=== PATIENT | male | born 1935 ===

== ENCOUNTER 2025-01-06 10:46 | Outpatient (AMB) | payer MEDICARE, OTHER, SELFPAY ==
--- NOTE | 2025-01-06 10:49 | MHC.OFFVIS ---
Intake Visit Reasons: 6 M PD Allergies No Known Allergies Allergy (Verified 12/31/24 10:43) Medication List - Last Reconciled 01/06/25 by Anne Marie García CNP carbidopa-levodopa 25-100 mg 1 tab PO BID febuxostat 40 mg PO DAILY leflunomide 10 mg PO DAILY methotrexate sodium 2.5 mg PO QWEEK omeprazole 20 mg PO DAILY rasagiline 1 mg PO DAILY simvastatin 40 mg PO DAILY tramadol 50 mg PO BID PRN HPI Comments Details: 89-year-old man with hypertension, hyperlipidemia, psoriatic arthritis, gout, lymphoma and bladder cancer in the past, with history of resting tremor in the right hand beginning around 2017. He was seen by Dr. Ko around 2018 and diagnosed with parkinsonian tremor. He was started on rasagiline 1mg daily and carbidopa levodopa 25/100mg twice a day. He was still taking carbidopa-levodopa twice a day and rasagiline daily. He was dealing with some increased back pain. He was having some trouble getting up from a chair and turning in bed. Balance was about the same, no falls. He was using walker for longer distances. Tremor to right arm and leg was about the same, some days worse than others. No functional impairment. No difficulty eating or drinking. His voice was softer and he had trouble getting words out sometimes. He was waiting for an appointment with ENT. [facility] Medical History (Updated 01/06/25 @ 10:52 by Anne Marie García CNP) Gout HLD (hyperlipidemia) GERD (gastroesophageal reflux disease) Kidney disease Skin cancer Bladder cancer Lymphoma Psoriatic arthritis Hypertension Parkinsonian tremor Review of Systems Const Denies chills, Denies daytime sleepiness, Denies difficulty sleeping, Denies fatigue, Denies fever(s), Denies frequent falls, Denies headache(s), Denies increased appetite, Denies poor appetite, Denies snoring, Denies weakness, Denies weight gain and Denies weight loss Eyes Denies loss of vision ENT Denies vertigo, Denies dizziness, Denies headache(s) and Denies neck pain Card Denies chest pain at rest, Denies chest pain with activity, Denies syncope, Denies leg edema, Denies palpitations, Denies dyspnea and Denies dyspnea on exertion Resp Denies cough, Denies dyspnea, Denies dyspnea on exertion and Denies snoring GI Denies abdominal pain, Denies constipation, Denies heartburn, Denies diarrhea and Denies nausea Denies urinary frequency, Denies urinary incontinence and Denies urinary urgency Musc Denies abnormal gait, Denies back pain, Denies myalgias, Denies arthralgias, Denies neck pain, Denies numbness and Denies tingling Neuro Denies abnormal gait, Denies vertigo, Denies dizziness, Denies syncope, Denies frequent falls, Denies headache(s), Denies lack of coordination, Denies loss of vision, Denies memory loss, Denies numbness, Denies Other visual disturbances, Denies restless legs, Denies seizure-like activity, Denies tingling, Denies paresthesias, Reports tremor(s) and Denies weakness Psych Denies anxiety, Denies depression, Denies auditory hallucinations, Denies memory loss and Denies visual hallucinations Endo Denies fatigue and Denies palpitations Physical Exam Const Other: General Appearance:? normal, in no acute distress. Heart:? S1, S2 normal, no murmurs. Lungs:? clear anteriorly and posteriorly. Musculoskeletal:? normal. Extremities:? no edema. Psych:? alert, oriented, cognitive function intact, cooperative with exam. Neuro Other: Abnormal Neurological Findings:?6 Hz tremor of the jaw and lip. Intermittent large amplitude slow frequency 6 Hz tremor of the right upper extremity and the right leg. Very mild RUE cogwheeling. Minimal decrease in facial expression.?Walking with walker. Mental Status: alert and oriented X 3. Normal attention, orientation, memory, and affect. Cranial Nerves: Pupils are equal, round, and reactive to light. External ocular muscles are intact. Visual sykes are full, no ptosis. Face is symmetrical, no facial weakness or droop. Facial sensations are normal. Tongue protrudes in midline. Palate elevates symmetrically. Shoulder shrugging is normal Motor Examination: Normal muscle tone, bulk and strength. No atrophy or fasciculations. No drift of the extended upper extremities. DTR 2+. Plantars are flexor. Sensory Exam: Normal light touch, temperature, pinprick, vibration, and joint-position sensations. Rhomberg sign is absent. Coordination: No ataxia. No titubation. Mvkhic-dl-twuk, ammb-qnzu-kahm test, and rapid alternating movements were normal. Gait Exam: With a walker. Cerebellar Signs: Rupvzw-cm-dtym is okay. Extrapyramidal System: As above. Speech: Normal. No dysphasia or dysarthria. Assessment & Plan Assessment & Plan (1) Parkinsons disease: Code(s): G20.A1 - Parkinson's disease without dyskinesia, without mention of fluctuations Category: Medical Qualifiers: Dyskinesia presence: without dyskinesia Fluctuating manifestations: without fluctuating manifestations Qualified Code(s): G20.A1 - Parkinson's disease without dyskinesia, without mention of fluctuations Plan: Increase carbidopa-levodopa 25-100mg 1 tablet three times a day. Continue rasagiline mesylate 1mg 1 tablet daily. Stay physically active, use walker. Medications: New carbidopa-levodopa 25-100 mg (Sinemet) 1 tab PO TID 270 tabs 1RF 90 days Coding Level of Care Code Est Pt Level 4 (71934) Diagnoses Parkinson's disease without dyskinesia or fluctuating manifestations G20.A1 Dyskinesia presence: without dyskinesia Fluctuating manifestations: without fluctuating manifestations
--- OUTSIDE RECORDS SUMMARY | 2025-01-06 11:56 | XMS_ITS | Encounter Summary ---
Author Organization [facility] Address [address] [place] [phone] Phone Care Team Providers Care [place] Supervisor Name Role Phone Leonid Ramsey MD Primary Care Provider [phone] Ladonna Moya RN Unavailable [email or web address] Sammy Martin MD Unavailable [phone] Zander Bettencourt MD Unavailable minna Kashmir Huang MD Unavailable [phone] Encounter Details Date Type Department Care Team (Late st Contact Info) Description 05/09/2024 Procedure Pass [facility], [facility] [place] [place] [address], [address] [place] [id number] Social History Tobacco Use Types Packs/Day Years Used Date Smoking Tobacco: Never Smokeless Tobacco: Never Alcohol Use Standard Drinks/Week Comments Yes 0 (1 standard drink = 0.6 oz pur e alcohol) Education Answer Date Recorded Are you interested in more education? Not on mando e 10/05/2022 Are you concerned about learning? Not on file 10/05/2022 No 10/05/2022 No 10/05/2022 Digital Access Answer Date Recorded No 10/31/2022 No 10/31/2022 Reliable internet access at home? Not on file 10/31/2022 Device with a working camera? Not on file Sex and Gender Information Value Date Recorded Sex Assigned at Not on file Legal Sex Male 7:20 PM EST Gender Identity Not on file Sexual Orientation Not on file documented as of this encounter Plan of Treatment Upcoming Encounters Date Type Department Care Team (Late st Contact Info) Description 01/19/2025 9:15 AM EDT Blood Draw [facility] Imaging Department, [facility], Imaging [facility] [address] [place] [address], [address] [place] [address] Marisol Means MD, PhD [address] [place] [id number] [email or web address] 01/19/2025 10:45 AM EDT Appointment [facility] Imaging Department, [facility], PET/CT [address] [place] [id number] Marisol Means MD, PhD [address] [place] [phone] [email or web address] 01/19/2025 2:00 PM EDT [facility], Division of Hematologic Oncology, [address], [address] [place] [address] Maura Keller, [address] [phone] [email or web address] 02/16/2025 2:30 PM EDT Office Visit [facility] Rheumatology [address] [place] [address] [place] [address] Claudtete Mckeon MD [address] [place] [phone] documented as of this encounter Visit Diagnoses Not on filedocumented in this encounter Care Teams [place] Supervisor Relationship Specialty Start Date End Date Leonid Ramsey MD [address] [place] [address] [place] [address] PCP - General Endocrinology 02/10/22 Ladonna Moya, RN [address] [place] [phone] [email or web address] Primary Infusion Nurse 04/26/22 Sammy Martin MD [address] [place] [address] Nephrology 05/10/22 Zander Bettencourt MD [address] [place] [address] Rheumatology 05/10/22 Kashmir Huang MD [address] [place] [phone] [email or web address] Urology 05/10/22 documented as of this encounter Additional Source Comments The information contained in this document represents components of the legal health record. It is not the complete legal health record.[facility]
--- OUTSIDE RECORDS SUMMARY | 2025-01-06 11:56 | XMS_ITS ---
Author Name [facility] Organization Unknown Results Test Name/Text Value Interpretation Date Range Source MAGNESIUM SERPL MCNC 2.1 mg/dL Normal 04/04/2024 1.7 - 2.8 [facility] MCHC RBC AUTO MCNC 34.1 g/dL Normal 04/04/2024 32 - 36 [facility] MCH RBC QN AUTO 32.1 pg Normal 04/04/2024 25 - 33 CTT HS RBC NO. BLD AUTO 2.93 M/uL Below low normal 04/04/2024 4.7 - [facility] HGB BLD MCNC 9.4 g/dL Below low normal 04/04/2024 13.5 - 18 [facility] MCV RBC AUTO 94.2 fL Normal 04/04/2024 78 - 100 [facility] H HCT VFR BLD AUTO 27.6 % Below low normal 04/04/2024 40 - 54 [facility] RDW RBC AUTO RTO 13.2 % Normal 04/04/2024 12.1 - 17.7 [facility] WBC NO. BLD AUTO 4.6 K/uL Normal 04/04/2024 4 - 10.5 CT [facility] PMV BLD AUTO 8.6 fL Normal 04/04[facility]2024 [facility] NO. BLD AUTO 181.0 K/uL Normal 04/04/2024 150 - 450 [facility] CALCIUM SERPL MCNC 8.8 mg/dL Normal 04/04/2024 8.4 - 10.2 [facility] CREAT SERPL MCNC 2.9 mg/dL Above high normal 04/04/2024 0.7 - 1.3 [facility] SODIUM SERPL SCNC 136.0 mmol/L Normal 04/04/2024 135 - 14 5 [facility] CHLORIDE SERPL SCNC 115.0 mmol/L Above high normal 04/04/2024 98 - 107 [facility] Glomerular filtration rate/1.73 sq M. predicted 20.0 Below low normal 04/04/2024 60 - [facility] HCO3 SER SCNC 13.0 mmol/L Below low normal 04/04/2024 24 - 3 2 [facility] ANION GAP SERPL SCNC 8.0 mmol/L Normal 04/04/2024 5 - 14 [facility] POTASSIUM SERPL SCNC 4.2 mmol/L Normal 04/04/2024 3.5 - 5.1 [facility] GLUCOSE P FAST SERPL MCNC 102.0 mg/dL Above high normal 04/04/2024 70 - 99 [facility] BUN SERPL MCNC 74.0 mg/dL Above high normal 04/04/2024 9 - 2 0 [facility] Glomerular filtration rate/1.73 sq M. predicted 16.0 Below low normal 04/03/2024 60 - [facility] SODIUM SERPL SCNC 129.0 mmol/L Below low normal 04/03/2024 1 35 - 145 [facility] CREAT SERPL MCNC 3.5 mg/dL Above high normal 04/03/2024 0.7 - 1.3 [facility] POTASSIUM SERPL SCNC 4.1 mmol/L Normal 04/03/2024 3.5 - 5.1 [facility] BUN SERPL MCNC 88.0 mg/dL Above high normal 04/03/2024 9 - 2 0 [facility] CALCIUM SERPL MCNC 9.0 mg/dL Normal 04/03/2024 8.4 - 10.2 [facility] ANION GAP SERPL SCNC 8.0 mmol/L Normal 04/03/2024 5 - 14 [facility] HCO3 SER SCNC 12.0 mmol/L Below low normal 04/03/2024 24 - 3 2 [facility] GLUCOSE SERPL MCNC 148.0 mg/dL Normal 04/03/2024 70 - 199 [facility] CHLORIDE SERPL SCNC 109.0 mmol/L Above high normal 04/03/2024 98 - 107 [facility] HGB BLD MCNC 9.7 g/dL Below low normal 04/03/2024 13.5 - 18 [facility] RDW RBC AUTO RTO 13.3 % Normal 04/03/2024 12.1 - 17.7 [facility] MCH RBC QN AUTO 32.9 pg Normal 04/03/2024 25 - 33 [facility] PMV BLD AUTO 8.8 fL Normal 04/03/2024 7.4 - 11.4 [facility] MCV RBC AUTO 95.9 fL Normal 04/03/2024 78 - 100 [facility] H RBC NO. BLD AUTO 2.95 M/uL Below low normal 04/03/2024 4.7 - 6 [facility] PLATELET NO. BLD AUTO 165.0 K/uL Normal 04/03/2024 150 - 450 [facility] HCT VFR BLD AUTO 28.3 % Below low normal 04/03/2024 40 - 54 [facility] MCHC RBC AUTO MCNC 34.3 g/dL Normal 04/03/2024 32 - 36 [facility] WBC NO. BLD AUTO 5.5 K/uL Normal 04/03/2024 4 - [facility] MAGNESIUM SERPL MCNC 1.7 mg/dL Normal 04/03/2024 1.7 - 2.8 [facility] pH Ur Strip.auto 7.0 Normal 04/03/2024 4.5 - 8 CT [facility] Hgb Ur Ql Strip.auto TRACE Abnormal 04/03/2024 - [facility] Color Ur Auto YELLOW Normal 04/03/2024 [facility] Nitrite Ur Ql Strip.auto NEGATIVE Normal 04/03/2024 - [facility] Clarity Ur Refract.auto HAZY Normal 04/03/2024 [facility] Ketones Ur Ql Strip.auto NEGATIVE Normal 04/03/2024 - [facility] Glucose Ur Ql Strip.auto NEGATIVE Normal 04/03/2024 - [facility] Prot Ur Ql Strip.auto NEGATIVE Normal 04/03/2024 - [facility] Sp Gr Ur Strip.auto 1.01 Normal 04/03/2024 1.005 - 1.03 [facility] SPECIMEN SOURCE XXX STOMA Normal 04/03/2024 [facility] RBC number/area UrnS Auto 2.0 /HPF Normal 04/03/2024 0 - 3 [facility] WBC number/area UrnS Auto 10.0 /HPF Above high normal 04/03/2024 0 - 5 [facility] POTASSIUM SERPL SCNC 5.0 mmol/L Normal 04/02/2024 3.5 - 5.1 [facility] CHLORIDE SERPL SCNC 113.0 mmol/L Above high normal 04/02/2024 98 - 107 [facility] CREAT SERPL MCNC 3.9 mg/dL Above high normal 04/02/2024 0.7 - 1.3 [facility] CALCIUM SERPL MCNC 8.7 mg/dL Normal 04/02/2024 8.4 - 10.2 [facility] Glomerular filtration rate/1.73 sq M. predicted 14.0 Below low normal 04/02/2024 60 - [facility] SODIUM SERPL SCNC 130.0 mmol/L Below low normal 04/02/2024 1 35 - 145 [facility] HCO3 SER SCNC 9.0 mmol/L Below low normal 04/02/2024 24 - 32 [facility] ANION GAP SERPL SCNC 8.0 mmol/L Normal 04/02/2024 5 - 14 [facility] BUN SERPL MCNC 100.0 mg/dL Above high normal 04/02/2024 9 - 20 [facility] GLUCOSE SERPL MCNC 186.0 mg/dL Normal 04/02/2024 70 - 199 [facility] WBC number/area UrnS Auto >20 Above high normal 04/02/2024 0 - 5 [facility] RBC number/area UrnS Auto 2.0 /HPF Normal 04/02/2024 0 - 3 [facility] Glucose Ur Ql Strip.auto NEGATIVE Normal 04/02/2024 - [facility] Hgb Ur Ql Strip.auto NEGATIVE Normal 04/02/2024 - [facility] Clarity Ur Refract.auto CLOUDY Normal 04/02/2024 [facility] pH Ur Strip.auto 7.5 Normal 04/02/2024 4.5 - 8 CT [facility] Color Ur Auto YELLOW Normal 04/02/2024 [facility] Nitrite Ur Ql Strip.auto NEGATIVE Normal 04/02/2024 - [facility] Sp Gr Ur Strip.auto 1.015 Normal 04/02/2024 1.005 - 1.03 [facility] Prot Ur Ql Strip.auto 30.0 mg/dL Abnormal 04/02/2024 - [facility] Ketones Ur Ql Strip.auto NEGATIVE Normal 04/02/2024 - [facility] SPECIMEN SOURCE XXX UCC Normal 04/02/2024 [facility] MCHC RBC AUTO MCNC 33.9 g/dL Normal 04/02/2024 32 - 36 [facility] IMMATURE GRANULOCYTE, ABSOLUTE 0.03 k/uL Normal 04/02/2024 - 0.1 [facility] MCH RBC QN AUTO 33.2 pg Above high normal 04/02/2024 25 - 33 [facility] IMMATURE GRANULOCYTE, PERCENT 0.5 % Normal 04/02/2024 0 - 1 [facility] RDW RBC AUTO RTO 13.6 % Normal 04/02/2024 12.1 - 17.7 [facility] EOSINOPHIL NFR BLD AUTO 3.5 % Normal 04/02/2024 0 - 6 [facility] BASOPHILS IN BLOOD BY AUTOMATED COUNT 0.0 K/uL Normal 04/02/2024 0 - 0.2 [facility] EOSINOPHIL NO. BLD AUTO 0.2 K/uL Normal 04/02/2024 0 - 0.5 [facility] RBC NO. BLD AUTO 2.98 M/uL Below low normal 04/02/2024 4.7 - 6 [facility] HCT VFR BLD AUTO 29.2 % Below low normal 04/02/2024 40 - 54 [facility] BASOPHILS NFR BLD AUTO 0.6 % Normal 04/02/2024 0 - 2 [facility] WBC NO. BLD AUTO 6.6 K/uL Normal 04/02/2024 4 - 10.5 CT [facility] MONOCYTES NFR BLD AUTO 8.7 % Normal 04/02/2024 2 - 12 [facility] NUCLEATED RBC 0.0 % Normal 04/02/2024 0 - 1 [facility] PLATELET NO. BLD AUTO 186.0 K/uL Normal 04/02/2024 150 - 450 [facility] LYMPHOCYTES NO. BLD AUTO 0.7 K/uL Below low normal 04/02/2024 1 - 3.2 [facility] MCV RBC AUTO 98.0 fL Normal 04/02/2024 78 - 100 [facility] H NEUTROPHILS NO. BLD AUTO 5.1 K/uL Normal 04/02/2024 1.8 - 7.8 [facility] LYMPHOCYTES NFR BLD AUTO 9.9 % Below low normal 04/02/2024 20 - 48 [facility] MONOCYTES NO. BLD AUTO 0.6 K/uL Normal 04/02/2024 0 - 0.8 [facility] PMV BLD AUTO 8.3 fL Normal 04/02/2024 7.4 - 11.4 [facility] HGB BLD MCNC 9.9 g/dL Below low normal 04/02/2024 13.5 - 18 [facility] NEUTROPHILS NFR BLD AUTO 76.8 % Above high normal 04/02/2024 44 - 74 [facility] HCO3 SER SCNC 11.0 mmol/L Below low normal 04/02/2024 24 - 3 2 [facility] POTASSIUM SERPL SCNC 5.8 mmol/L Above high normal 04/02/2024 3.5 - 5.1 [facility] CALCIUM SERPL MCNC 9.4 mg/dL Normal 04/02/2024 8.4 - 10.2 [facility] GLUCOSE SERPL MCNC 159.0 mg/dL Normal 04/02/2024 70 - 199 [facility] CHLORIDE SERPL SCNC 115.0 mmol/L Above high normal 04/02/2024 98 - 107 [facility] ANION GAP SERPL SCNC 7.0 mmol/L Normal 04/02/2024 5 - 14 [facility] SODIUM SERPL SCNC 133.0 mmol/L Below low normal 04/02/2024 1 35 - 145 [facility] Glomerular filtration rate/1.73 sq M. predicted 13.0 Below low normal 04/02/2024 60 - [facility] CREAT SERPL MCNC 4.3 mg/dL Above high normal 04/02/2024 0.7 - 1.3 [facility] BUN SERPL MCNC 101.0 mg/dL Above high normal 04/02/2024 9 - 20 [facility] GLUCOSE BLDC GLUCOMTR MCNC 148.0 mg/dL Normal 04/02/2024 70 - 199 [facility] UUN UR MCNC 498.0 mg/dL Normal 04/02/2024 [facility] CK SERPL CCNC 57.0 U/L Normal 04/02/2024 30 - 135 [facility] SODIUM UR SCNC 51.0 mmol/L Normal 04/02/2024 CT [facility] CREAT UR MCNC 92.0 mg/dL Normal 04/02/2024 [facility] CREAT [facility] MC[facility] 4.5 mg/dL Above high normal 04/02/2024 0.7 - 1.3 [facility] HCO3 SER SCNC 12.0 mmol/L Below low normal 04/02/2024 24 - 3 2 [facility] GLUCOSE SERPL MCNC 94.0 mg/dL Normal 04/02/2024 70 - 199 [facility] Glomerular filtration rate/1.73 sq M. predicted 12.0 Below low normal 04/02/2024 60 - [facility] CALCIUM SERPL MCNC 9.7 mg/dL Normal 04/02/2024 8.4 - 10.2 [facility] POTASSIUM SERPL SCNC 6.1 mmol/L Above high normal 04/02/2024 3.5 - 5.1 [facility] CHLORIDE SERPL SCNC 116.0 mmol/L Above high normal 04/02/2024 98 - 107 [facility] BUN SERPL MCNC 106.0 mg/dL Above high normal 04/02/2024 9 - 20 [facility] SODIUM SERPL SCNC 136.0 mmol/L Normal 04/02/2024 135 - 14 5 [facility] ANION GAP SERPL SCNC 8.0 mmol/L Normal 04/02/2024 5 - 14 [facility] ANION GAP SERPL SCNC 7.0 mmol/L Normal 04/01/2024 5 - 14 [facility] GLUCOSE SERPL MCNC 74.0 mg/dL Normal 04/01/2024 70 - 199 [facility] CREAT SERPL MCNC 4.6 mg/dL Above high normal 04/01/2024 0.7 - 1.3 [facility] Glomerular filtration rate/1.73 sq M. predicted 12.0 Below low normal 04/01/2024 60 - [facility] HCO3 SER SCNC 12.0 mmol/L Below low normal 04/01/2024 24 - 3 2 [facility] CHLORIDE SERPL SCNC 118.0 mmol/L Above high normal 04/01/2024 98 - 107 [facility] CALCIUM SERPL MCNC 9.6 mg/dL Normal 04/01/2024 8.4 - 10.2 [facility] POTASSIUM SERPL SCNC 6.3 mmol/L Above high normal 04/01/2024 3.5 - 5.1 [facility] BUN SERPL MCNC 110.0 mg/dL Above high normal 04/01/2024 9 - 20 [facility] SODIUM SERPL SCNC 137.0 mmol/L Normal 04/01/2024 135 - 14 5 [facility] RSV RNA Nph Ql JIE+non-probe NEGATIVE Normal 04/01/2024 [facility] Service [facility] XXX-Imp Cepheid GeneXpert (RT-PCR) H Normal 04/01/2024 [facility] FLUAV RNA Nph Ql JIE+non-probe NEGATIVE Normal 04/01/2024 [facility] FLUBV RNA Nph Ql JIE+non-probe NEGATIVE Normal 04/01/2024 [facility] SPECIMEN SOURCE XXX NASOPHARYNGEAL Normal 04/01/2024 [facility] PHOSPHATE SERPL MCNC 5.5 mg/dL Above high normal 04/01/2024 2.5 - 4.5 [facility] LDH SERPL L TO P CCNC 105.0 U/L Below low normal 04/01/2024 125 - 220 [facility] ALP [facility]PL-CCNC 51.0 U/L Normal 04/01/2024 34 - 104 [facility] AST SERPL CCNC 13.0 U/L Normal 04/01/2024 5 - 40 [facility] ALT SERPL CCNC 11.0 U/L Normal 04/01/2024 7 - 52 [facility] CHLORIDE SERPL SCNC 115.0 mmol/L Above high normal 04/01/2024 98 - 107 [facility] Glomerular filtration rate/1.73 sq M. predicted 11.0 Below low normal 04/01/2024 60 - [facility] SODIUM SERPL SCNC 135.0 mmol/L Normal 04/01/2024 135 - 14 5 [facility] BUN SERPL MCNC 108.0 mg/dL Above high normal 04/01/2024 9 - 20 [facility] POTASSIUM SERPL SCNC 6.4 mmol/L Above high normal 04/01/2024 3.5 - 5.1 [facility] HCO3 SER SCNC 13.0 mmol/L Below low normal 04/01/2024 24 - 3 2 [facility] ANION GAP SERPL SCNC 8.0 mmol/L Normal 04/01/2024 5 - 14 [facility] GLUCOSE SERPL MCNC 152.0 mg/dL Normal 04/01/2024 70 - 199 [facility] CALCIUM SERPL MCNC 9.6 mg/dL Normal 04/01/2024 8.4 - 10.2 [facility] CREAT SERPL MCNC 4.7 mg/dL Above high normal 04/01/2024 0.7 - 1.3 [facility] LACTATE SERPL SCNC 0.8 mmol/L Normal 04/01/2024 0.5 - 2 [facility] LIPASE SERPL CCNC 64.0 U/L Normal 04/01/2024 11 - 82 [facility] BILIRUB SERPL MCNC 0.3 mg/dL Normal 04/01/2024 0.3 - 1 [facility] BILIRUB DIRECT SERPL MCNC 0.1 mg/dL Normal 04/01/2024 0 - 0.2 [facility] URATE SERPL MCNC 7.1 mg/dL Normal 04/01/2024 3.5 - 8.5 CT [facility] LYMPHOCYTES NO. BLD AUTO 0.3 K/uL Below low normal 04/01/2024 1 - 3.2 [facility] MCH RBC QN AUTO 32.7 pg Normal 04/01/2024 25 - 33 [facility] BASOPHILS NFR BLD AUTO 0.4 % Normal 04/01/2024 0 - 2 [facility] MONOCYTES NO. BLD AUTO 0.5 K/uL Normal 04/01/2024 0 - 0.8 [facility] HGB BLD MCNC 10.8 g/dL Below low normal 04/01/2024 13.5 - 18 [facility] HCT VFR BLD AUTO 32.7 % Below low normal 04/01/2024 40 - 54 [facility] WBC NO. BLD AUTO 9.3 K/uL Normal 04/01/2024 4 - 10.[facility] BASOPHILS IN BLOOD BY AUTOMATED COUNT 0.0 K/uL Normal 04/01/2024 0 - 0.2 [facility] MCHC RBC AUTO MCNC 33.0 g/dL Normal 04/01/2024 32 - 36 [facility] IMMATURE GRANULOCYTE, PERCENT 0.4 % Normal 04/01/2024 0 - 1 [facility] PLATELET NO. BLD AUTO 215.0 K/uL Normal 04/01/2024 150 - 450 [facility] MCV RBC AUTO 99.1 fL Normal 04/01/2024 78 - 100 [facility] EOSINOPHIL NFR BLD AUTO 0.3 % Normal 04/01/2024 0 - 6 [facility] LYMPHOCYTES NFR BLD AUTO 3.7 % Below low normal 04/01/2024 20 - 48 [facility] PMV BLD AUTO 8.4 fL Normal 04/01/2024 7.4 - 11.4 [facility] MONOC[facility]TES NFR BLD AUTO 4.8 % Normal 04/01/2024 2 - 12 [facility] NUCLEATED RBC 0.0 % Normal 04/01/2024 0 - 1 [facility] RBC NO. BLD AUTO 3.3 M/uL Below low normal 04/01/2024 4.7 - 6 [facility] RDW RBC AUTO RTO 13.8 % Normal 04/01/2024 12.1 - 17.7 [facility] NEUTROPHILS NFR BLD AUTO 90.4 % Above high normal 04/01/2024 44 - 74 [facility] IMMATURE GRANULOCYTE, ABSOLUTE 0.04 k/uL Normal 04/01/2024 - 0.1 [facility] NEUTROPHILS NO. BLD AUTO 8.4 K/uL Above high normal 04/01/2024 1.8 - 7.8 [facility] EOSINOPHIL NO. BLD AUTO 0.0 K/uL Normal 04/01/2024 0 - 0.5 [facility] AMYLASE SERPL CCNC 70.0 U/L Normal 04/01/2024 29 - 103 [facility] History of Medication Use Medication Directions Dispensed Refills Start Date End Date Stat sodium chloride 0.9% (NS) infusion 75 mL/hr, Intravenous, Continuous, Starting on Sun04/03/24 at 1200, For 8 hours 04/03/2024 04/04/2024 completed senna (SENOKOT) 8.6 MG tablet 1 tablet 1 tablet, Oral, Every Night at Bedtime, First dose on Sun04/02/24 at 2200 04/03/2024 active heparin (porcine) injection 5,000 Units 5,000 Units, Subcutaneous, Every 8 hours scheduled, First dose on Sun04/02/24 at 0600If CrCL less than 30 use subcut Heparin 04/02/2024 04/04/2024 aborted pantoprazole (PROTONIX) 40 MG EC tablet 40 mg 40 mg, Oral, Every Morning on an empty stomach (Daily), First dose on Sun04/02/24 at 0600Please select an indication: GERDIs this a home medication or a new start? Home Medication 04/02/2024 active albuterol (PROVENTIL) nebulizer solution 2.5 mg 2.5 mg, Nebulization, Once, On Sun04/01/24 at 1645, For 1 dose 04/01/2024 04/01/2024 completed sodium zirconium cyclosilicate (Lokelma) 10 g PACK packet Take 1 packet (10 g total) by mouth 06/19/2023 06/19/2024 active folic acid (FOLVITE) tablet 1 mg Take 1 tablet (1 mg total) by mouth. active Problems Problem Status Onset Date Problem Type Date of Resoluti on Source Hyperkalemia active 2024-04-01 ProblemAct [facility] (acute kidney injury) active 2024-04-01 ProblemAct [facility] Encounters Encounter Type Encounter Reason Primary Diagnosis Location Date Inpatient Acute kidney failure , unspecified Acute kidney failure, unspecified [facility] 04/01/2024 Care Team Organization Name Specialty Phone Email Start Date End [facility] te [facility] 04/03/2024 12/23/2024 [facility] 04/01/2024 [facility]UIDO PATEL Primary Care 04/01/2024
--- OUTSIDE RECORDS SUMMARY | 2025-01-06 11:56 | XMS_ITS | Clinical Summary ---
Author Organization [facility], Address [address] [place] [address] [place] [address] Phone Care Team Providers Care Political Consultant Name Role Phone Leonid Ramsey MD Primary Care Provider Allergies No known active allergies Medications Febuxostat (Uloric) 40 MG tablet Comments: Filled Date: Nov 25 2016 12:00AM Patient Notes: TAKE 1 TABLET BY MOUTH EVERY DAY Duration: 30 6 Active simvastatin (ZOCOR) 40 MG tablet Comments: Filled Date: Nov 17 2016 12:00AM Patient Notes: TAKE 1 TABLET BY MOUTH ONCE A DAY Duration: 7 Active traMADol (ULTRAM) 50 MG tablet Comments: Filled Date: Dec 21 2016 12:00AM Patient Notes: TAKE 1 TABLET BY MOUTH TWICE A DAY NEEDED Duration: 30 7 Active sodium polystyrene (KAYEXALATE) 15 GM/60ML suspension Take 60 mL by mouth 1 (one) time 7 Active omeprazole (PriLOSEC) [address] capsule Comments: Filled Date: Nov 17 2016 12:00AM Patient Notes: TAKE 1 CAPSULE BY MOUTH ONCE A DAY Duration: 7 Active methotrexate 2.5 MG tablet Comments: Filled Date: Jan 06 2017 12:00AM Patient Notes: TAKE 1 TABLET BY MOUTH ONCE WEEKLY Duration: 7 Active rasagiline (AZILECT) 1 MG tablet 1 Active acyclovir (ZOVIRAX) 400 MG tablet TAKE 1 TABLET (400 MG TOTAL) BY MOUTH 2 TIMES A DAY 2 Active carbidopa-levodo pa (SINEMET) 25-100 MG per tablet Take 1 tablet by mouth 2 Active dexamethasone (DECADRON) 4 MG tablet PLEASE SEE ATTACHED FOR DETAILED DIRECTIONS 2 Active diclofenac (VOLTAREN) 0.1 % ophthalmic solution PLACE 1 DROP INTO BOTH EYES 4 TIMES A DAY NEEDED FOR EYE PAIN 2 Active LORazepam (ATIVAN) 0.5 MG tablet Take 0.5 mg by mouth 2 Active mupirocin (BACTROBAN) 2 % ointment APPLY TWICE DAILY TO BIOPSY SITE UNTIL HEALED. 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 Chronic kidney disease stage 4 11/12/2019 Absent kidney 11/12/2019 Malignant neoplasm of urinary bladder 04/17/2012 Overview (05/08/2022): Malignant tumor of urinary bladder Encounters Date Type Department Care Team Description 10/27/2024 Orders Only [facility] [address] [place] [address] [place] [address] Em Quesada Chronic kidney disease stage 4 (HCC) (Primary Dx) from Last 3 Months Immunizations Immunization Administration Dates Next Due Influenza Vaccine, Quadrivalent, Adjuvanted 03/11 Influenza, Trivalent, Adjuvanted 03/25/2019 Pneumococcal Polysaccharide 03/25/2019, 5 Family History Medical History Relation Comments Diabetes Father Kidney disease Father Heart disease Mother heart attack Hypertension Mother Cancer Sibling brother- lung Relation Status Comments Father Mother Sibling Social History Tobacco Use Types Packs/Day Years Used Date Smoking Tobacco: Never Comments:Smoking History Inf o:Every day Alcohol Use Standard Drinks/Week Comments No 0 (1 standard drink = 0.6 oz pure alcohol) Alcoholic Drinks/day: Occasional social drink Sex and Gender Information Value Date Recorded Sex Assigned at Not on file Legal Sex Male 4:33 PM EST Gender Identity Not on file Sexual Orientation Not on file Last Filed Vital Signs Vital Sign Reading Time Taken Comments Blood Pressure 124/64 09/24/2024 3:11 PM EDT Pulse - - Temperature - - Respiratory Rate - - Oxygen Saturation - - Inhaled Oxygen Concentration - - Weight 85.7 kg (189 lb) 10/01/2020 5:51 PM EDT Height 177.8 cm (5' 10 ) 05/14/2019 12:00 PM EST Body Mass Index 27.12 05/14/2019 12:00 PM EST Plan of Treatment Upcoming Encounters Date Type Department Care Team (Late st Contact Info) Description 03/04/2025 3:15 PM EDT Office Visit [facility] [address] [place] [phone] Sammy Martin MD [address] [place] [address] [place] [id number] Health Maintenance Due Date Last Done Comments Pneumococcal Vaccine: 50+ Years (3 of 3 - PCV) 03/25/2020 03/25/2019, 01/20/2015 Diabetes: Hemoglobin A1C 04/24/2022 Diabetes: Ophthalmology Exam 04/24/2022 Diabetes: Pedal Pulse Checked 04/24/2022 Diabetes: Sensory Foot Exam 04/24/2022 Diabetes: Visual Foot Exam 04/24/2022 Influenza Vaccine (#1) 2025 0, 03/25/2019, 04/01/2018, Additional history exists Pneumococcal Vaccine: Peds (0 to 5 Years) and At-Risk Patients (6 to 49 Years) Discontinued 03/25/2019, 01/20/2015 Hepatitis B Vaccine Aged Out No longe r eligible based on patient's age to complete this topic Insurance Medicare Unicare Care Teams Political Consultant Relationship Specialty Start Date End Date Leonid Ramsey MD [address] [place] [address] [address] [place] [address] PCP - General 04/15/19
--- OUTSIDE RECORDS SUMMARY | 2025-01-06 11:56 | XMS_ITS | Encounter Summary ---
Author Organization [employer] Address [address] [place] [address] Care Team Providers Care Automatic Machines Supervisor Name Role Phone Leonid Ramsey MD Primary Care Provider [phone] Encounter Details Date Type Department Care Team (Late st Contact Info) Description 09/08/2024 Lab Requisition [facility] - Main Lab [address] [facility] [place] [address] Kashmir Huang MD [address] [place] [phone] Malignant neoplasm of trigone of bladder (CMS/HCC V24, CMS/HCC V28) Social History Tobacco Use Types Packs/Day Years Used Date Smoking Tobacco: Former Cigarettes Q uit: 03/23/1984 Smokeless Tobacco: Never Alcohol Use Standard Drinks/Week Comments Not Currently 0 (1 standard drink = 0.6 oz pur e alcohol) Sex and Gender Information Value Date Recorded Sex Assigned at Not on file Legal Sex Male 9:12 PM EST Gender Identity Not on file Sexual Orientation Not on file documented as of this encounter Plan of Treatment Not on file documented as of this encounter Procedures Procedure Name Priority Date/Time Associated Diagnosis Comments AP OUTSIDE CONSULT Routine 09/03/2024 12 :00 AM EDT Malignant neoplasm of trigone of bladder (CMS/HCC) documented in this encounter Results * Anatomic pathology outside consult (09/03/2024 12:00 AM EDT) Final Diagnosis A. Ileal Conduit, ([id number]): Negative for high grade urothelial carcinoma. Results of UroVysion fluorescence in situ hybridization (FISH) testing: Although FISH was performed, insufficient non-obscured hybridization signals are present for evaluation and interpretation. 09/12/2024 4:14 PM EDT [facility] Clinical Information Malignant neoplasm of trigone of bladder C67.0 Urine Cytology/FISH (now) 09/12/2024 4:14 PM EDT [facility] Gross Description A. Ileal Conduit, ([id number]): Received one ThinPrep slide for cytology and one ThinPrep slide for UroVysion FISH 09/12/2024 4:14 PM EDT [facility] Disclaimer Unless otherwise specified, all tissue is 10% NB formalin fixed and paraffin embedded. Technical pathology services provided by [facility] at [address], [place] [address] (CLIA #[id number]/Giulia Ricci MD, Garden Labourer) 09/12/2024 4:14 PM EDT [facility] Tissue Ileal biopsy specimen / Unknown 09/03/2024 09/08/2024 10:23 AM EDT us Kashmir Huang MD LAB PATHOLOGY ORDERABLES Final Result [facility] [address] [place] [address], documented in this encounter Visit Diagnoses Diagnosis Malignant neoplasm of trigone of bladder (CMS/HCC V24, CMS/HCC V28) Malignant neoplasm of trigone of urinary bladder documented in this encounter Care Teams Automatic Machines Supervisor Relationship Specialty Start Date End Date Leonid Ramsey MD [address] [place] [address] [address] [place] [address] PCP - General 04/01/24 documented as of this encounter
--- OUTSIDE RECORDS SUMMARY | 2025-01-06 11:56 | XMS_ITS | Clinical Summary ---
Author Organization [facility] Address [address] [place] [address] Care Team Providers Care Windows Application Packager Name Role Phone Leonid Ramsey MD Primary Care Provider [phone] Allergies No known active allergies Medications Medication Sig Dispensed Refills Start Date End Date Status febuxostat (ULORIC) 40 MG tablet Take 1 tablet (40 mg total) by mouth daily. 0 12/29/2023 Active omeprazole (PriLOSEC) 20 MG capsule Take 1 capsule (20 mg total) by mouth daily. 0 02/27/2024 Active simvastatin (ZOCOR) tablet 40 mg Take 1 tablet (40 mg total) by mouth daily. 0 02/11/2024 Active sodium bicarbonate 650 MG tablet Take 1 tablet (650 mg total) by mouth 3 (three) times a day. 0 01/16/2022 Active folic acid (FOLVITE) tablet 1 mg Take 1 tablet (1 mg total) by mouth. 0 Active carbidopa-levodopa (SINEMET) 25-100 MG per tablet Take 1 tablet by mouth 2 (two) times a day. 0 03/04/2024 Active Active Problems Problem Noted Date Diagnosed Date Hyperkalemia 04/01/2024 DANIEL (acute kidney injury) 04/01/2024 Family History Medical History Relation Name Comments Heart disease Mother Relation Name Status Comments Mother Social History Tobacco Use Types Packs/Day Years Used Date Smoking Tobacco: Former Cigars Q uit: 03/23/1984 Smokeless Tobacco: Never Tobacco Cessation:Counseling Given: Not Answered Alcohol Use Standard Drinks/Week Comments Not Currently 0 (1 standard drink = 0.6 oz pur e alcohol) Sex and Gender Information Value Date Recorded Sex Assigned at Male 04/01/2024 3:21 PM EDT Gender Identity Male 04/02/2024 11:05 AM EDT Sexual Orientation Straight 04/02/2024 11 :05 AM EDT Job Start Date Occupation Industry Not on file Not on file Not on file Last Filed Vital Signs Vital Sign Reading Time Taken Comments Blood Pressure 136/78 04/04/2024 7:57 AM EDT Pulse 90 04/04/2024 7:57 AM EDT Temperature 36.9 C (98.4 F) 04/04/2024 7:57 AM EDT Respiratory Rate 15 04/04/2024 7:57 AM EDT Oxygen Saturation 99% 04/04/2024 7:57 AM EDT Inhaled Oxygen Concentration - - Weight 77.1 kg (170 lb) 04/01/2024 2:52 PM EDT Height 175.3 cm (5' 9 ) 04/01/2024 2:52 PM EDT Body Mass Index 25.1 04/01/2024 2:52 PM EDT Plan of Treatment Health Maintenance Due Date Last Done Comments COVID-19 Vaccine (#1) 1937 Depression Screening 1949 Preventative Health Evaluation 1955 Shingrix-Zoster Vaccine (1 of 2) 1987 Fall Risk Assessment 2002 RSV Adult > 60+ Yrs or (1 - 1-dose 75+ series) 01/25/2012 Pneumococcal Vaccine (2 of 2 - PCV) 03/25/2020 03/25/2019, 01/20/2015 Influenza Vaccine (#1) 2025 2, 03/29/2021, 03/24/2020, Additional history exists DTap / Tdap / Td (2 - Td or Tdap) 01/19/2032 01/18/2022 Hepatitis B Vaccines Aged Out No long er eligible based on patient's age to complete this topic RSV Ped < 20 months Aged Out No longe r eligible based on patient's age to complete this topic Advance Directives For more information, please contact: [phone] Documents on File Type Date Recorded Patient Onsite Health Coach Expl anation Advance Directive and Living Will 04/15/2024 10:46 AM Health Care Proxy Latest Code Status on File Code Status Date Activated Date Inactivated Comments Full Code 04/01/2024 11:39 PM 04/04/2024 9:53 PM Th is code status was ascertained in the following way: discussion with patient . Care Teams Windows Application Packager Relationship Specialty Start Date End Date Leonid Ramsey MD [address] [place] [address] [address] [place] [address] PCP - General Hand Buffer 04/01/24
--- OUTSIDE RECORDS SUMMARY | 2025-01-06 11:56 | XMS_ITS | Continuity of Care Document ---
Author Organization [facility] [address] [place] [address] Phone [phone] Problems Active Problems Provider Date Type 2 diabetes mellitus Leonid Ramsey M.D. Onset: 02/17/2022 Chronic kidney disease stage 4 Leonid Ramsey M.D. Onset: 02/17/2022 Hypertensive disorder Leonid Ramsey M.D. On set: 02/17/2022 Fracture of neck of femur Cheko Sanders Onset: 02/17/2022 Malignant lymphoma Leonid Ramsey M.D. Onset : 10/09/2022 Carcinoma of bladder Leonid Ramsey M.D. Ons et: 10/09/2022 History of total cystectomy Susana Sanders Onset: 10/09/2022 Social History Type Date Description Comments Sex Male Sex Unknown Lives With Spouse Tobacco Use Start: Unknown Never Smoked Cigarettes Smoking Status Reviewed: 06/16/24 Never Smoked Cigaret dinorah ETOH Use Occasionally consumes beer Allergies and adverse reactions Description No Known Drug Allergies Medications Active Medications SIG Qnty Indications Order ing Provider Date Ativan0.5mg Tablets 1 tab orally 1 hour before procedure 1tabs Leonid Ramsey M.D. 05/31/2023 Guaifenesin-Codeine 100-10mg/5ML Solution 5 milliliters by mouth four times a day as needed 237ml Leonid Ramsey M.D. 05/23/2023 Carbidopa-Levodopa2 5-100mg Tablets Take 1 Tablet By Mouth Twice A Day 180tabs Leonid Ramsey M.D. 04/25/2023 [id number] Tablets tab by mouth every day Leonid Ramsey M.D. 02/17/2022 Lisinopril-Hydrochl [id number] Tablets 1/2 by mouth every day 90tabs Leonid Ramsey M.D. 02/17/2022 Tramadol [id number] Tablets Take 1 Tablet By Mouth Twice A Day as Needed Unknown [id number] Tablets Take 1 Tablet By Mouth Every Day 90tabs Leonid Ramsey M.D. Methotrexate2.5mg Tablets Take 1 Tablet By Mouth Once A Week For 90 Days Unknown [id number] Capsules DR Take 1 Capsule By Mouth Every Day 90caps Leonid Ramsey M.D. Diclofenac Sodium0.1% Solution Place 1 Drop Into Both Eyes 4 Times A Day as Needed For Eye Pain Unknown Ytgvrrger36ge Tablets 1 tab by mouth every day 90tabs Unknown Sodium [id number] Tablets Take 1 Tablet By Mouth Three Times A Day Unknown Rasagiline Ahwxjcjg6vg Tablets 1 tab by mouth every day 90tabs Kenna Lee MD Vital Signs Date Vital Result Comment 10/01/2024 2:32pm BP Systolic 128 mmHg BP Diastolic 70 mmHg Heart Rate 72 /min Height 71 inches 5'11 Weight 173.38 lb BMI (Body Mass Index) 24.2 kg/m2 Results Test Acquired Date Facility Test Result H/L Range N ote Glucose Fingerstick 10/01/2024 Inhouse Glucose Fingerstick 112 Hemoglobin A1c 10/01/2024 Inhouse Hemoglobin A1c 5.8% Glucose Fingerstick 06/16/2024 Inhouse Glucose Fingerstick 138 Hemoglobin A1c 06/16/2024 Inhouse Hemoglobin A1c 5.7% Glucose Fingerstick 04/28/2024 Inhouse Glucose Fingerstick 103 Glucose Fingerstick 04/16/2024 Inhouse Glucose Fingerstick 139 Hemoglobin A1c 04/16/2024 Inhouse Hemoglobin A1c 5.9% Glucose Fingerstick 11/23/2023 Inhouse Glucose Fingerstick 159 Hemoglobin A1c 11/23/2023 Inhouse Hemoglobin A1c 6.0% Glucose Fingerstick 05/23/2023 Inhouse Glucose Fingerstick 182 Hemoglobin A1c 05/23/2023 Inhouse Hemoglobin A1c 5.9% Glucose Fingerstick 11/21/2022 Inhouse Glucose Fingerstick 178 Hemoglobin A1c 11/21/2022 Inhouse Hemoglobin A1c 6.3% Glucose Fingerstick 05/23/2022 Inhouse Glucose Fingerstick 142 Glucose Fingerstick 02/17/2022 Inhouse Glucose Fingerstick 186 Medical Devices Description No Information Available Encounters Type Date Location Provider Dx Diagnosis Office Visit 06/17/2024 9:49a Main Office Leonid Ramsey M.D. N18.4 Chronic kidney disease, stage 4 (severe) E11.9 Type 2 diabetes deonte itus without complications Assessments Date Code Description Provider 10/01/2024 N18.4 Chronic kidney disease stage 4 Leonid Ramsey M.D. 10/01/2024 E11.9 Type 2 diabetes mellitus without complications Leonid Ramsey M.D. Plan of Treatment Future Appointment(s):* 04/07/2025 1:15 pm - Leonid Ramsey M.D. at Main Office 10/01/2024 - Leonid Ramsey M.D.* N18.4 Chronic kidney disease stage 4 * E11.9 Type 2 diabetes mellitus without complications Functional Status Description No Information Available Mental Status Description No Information Available Referrals Refer to Dr Reason for Referral Status Appt Kenna Bedolla MD FOLLOW UP PARKINSON'S DISEASE C losed 01/01/2024 [address] [facility] [address] [place] [address] [phone] [facility] Neurology FOLLOW UP PARKINSON'S DISEASE Close d [address] [address] [phone] [facility] SEVERE LOW BACK PA IN Closed 06/12/2023 [address] [place], [place] [id number] [phone]
== END 2025-01-06 11:07 | disposition home or self-care (01) ==
PROVIDERS: PCP Internal Medicine Endocrinology, Diabetes & Metabolism; Visit Provider Registered Nurse
DX: G20.A1 Parkinson's disease without dyskinesia, without mention of fluctuations (principal)
CPT/HCPCS: 99214

== ENCOUNTER → 2025-01-06 10:46 | Outpatient (BNVA) | payer MEDICARE, OTHER, SELFPAY | PROVIDERS: PCP Internal Medicine Endocrinology, Diabetes & Metabolism; Visit Provider Registered Nurse | DX: G20.A1 Parkinson's disease without dyskinesia, without mention of fluctuations (principal) | CPT/HCPCS: 99212 ==

== ENCOUNTER 2025-04-02 12:02 | Outpatient (AMB) | payer MEDICARE, OTHER, SELFPAY ==
--- NOTE | 2025-04-02 12:05 | MHC.OFFVIS ---
Intake Visit Reasons: 3m PD Allergies No Known Allergies Allergy (Verified 04/02/25 12:07) Medication List - Last Reconciled 04/02/25 by Anne Marie García CNP carbidopa-levodopa 25-100 mg (Sinemet) 1 tab PO TID 90 days febuxostat 40 mg PO DAILY leflunomide 10 mg PO DAILY methotrexate sodium 2.5 mg PO QWEEK omeprazole 20 mg PO DAILY rasagiline 1 mg PO DAILY simvastatin 40 mg PO DAILY tramadol 50 mg PO BID PRN HPI Comments Details: 89-year-old man with hypertension, hyperlipidemia, psoriatic arthritis, gout, lymphoma and bladder cancer in the past, with history of resting tremor in the right hand beginning around 2017. He was seen by Dr. Ko around 2018 and diagnosed with parkinsonian tremor. He was started on rasagiline 1mg daily and carbidopa levodopa 25/100mg twice a day. He was seen at [facility] few weeks ago after sliding out of bed when trying to answer the phone, no injuries and did not hit head. Tremor to right arm and leg was a bit better with carbidopa-levodopa three times a day. No functional impairment. No difficulty eating or drinking. No difficulty getting up from chair or turning in bed. Balance was about the same, no falls. He was using walker for longer distances. His voice was softer at times and he had appointment with ENT next month. [facility] Medical History (Updated 01/06/25 @ 10:52 by Anne Marie García CNP) Gout HLD (hyperlipidemia) GERD (gastroesophageal reflux disease) Kidney disease Skin cancer Bladder cancer Lymphoma Psoriatic arthritis Hypertension Parkinsonian tremor Review of Systems Const Denies chills, Denies daytime sleepiness, Denies difficulty sleeping, Denies fatigue, Denies fever(s), Denies frequent falls, Denies headache(s), Denies increased appetite, Denies poor appetite, Denies snoring, Denies weakness, Denies weight gain and Denies weight loss Eyes Denies loss of vision ENT Denies vertigo, Denies dizziness, Denies headache(s) and Denies neck pain Card Denies chest pain at rest, Denies chest pain with activity, Denies syncope, Denies leg edema, Denies palpitations, Denies dyspnea and Denies dyspnea on exertion Resp Denies cough, Denies dyspnea, Denies dyspnea on exertion and Denies snoring GI Denies abdominal pain, Denies constipation, Denies heartburn, Denies diarrhea and Denies nausea Denies urinary frequency, Denies urinary incontinence and Denies urinary urgency Musc Denies abnormal gait, Denies back pain, Denies myalgias, Denies arthralgias, Denies neck pain, Denies numbness and Denies tingling Neuro Denies abnormal gait, Denies vertigo, Denies dizziness, Denies syncope, Denies frequent falls, Denies headache(s), Denies lack of coordination, Denies loss of vision, Denies memory loss, Denies numbness, Denies Other visual disturbances, Denies restless legs, Denies seizure-like activity, Denies tingling, Denies paresthesias, Reports tremor(s) and Denies weakness Psych Denies anxiety, Denies depression, Denies auditory hallucinations, Denies memory loss and Denies visual hallucinations Endo Denies fatigue and Denies palpitations Physical Exam Const Other: General Appearance:? normal, in no acute distress. Heart:? S1, S2 normal, no murmurs. Lungs:? clear anteriorly and posteriorly. Musculoskeletal:? normal. Extremities:? no edema. Psych:? alert, oriented, cognitive function intact, cooperative with exam. Neuro Other: Abnormal Neurological Findings:?6 Hz tremor of the jaw and lip. Intermittent large amplitude slow frequency 6 Hz tremor of the right upper extremity and the right leg. Mild RUE cogwheeling. Minimal decrease in facial expression.?Walking with walker. Mental Status: alert and oriented X 3. Normal attention, orientation, memory, and affect. Cranial Nerves: Pupils are equal, round, and reactive to light. External ocular muscles are intact. Visual sykes are full, no ptosis. Face is symmetrical, no facial weakness or droop. Facial sensations are normal. Tongue protrudes in midline. Palate elevates symmetrically. Shoulder shrugging is normal Motor Examination: Normal muscle tone, bulk and strength. No atrophy or fasciculations. No drift of the extended upper extremities. DTR 2+. Plantars are flexor. Sensory Exam: Normal light touch, temperature, pinprick, vibration, and joint-position sensations. Rhomberg sign is absent. Coordination: No ataxia. No titubation. Gait Exam: With a walker. Cerebellar Signs: Lzqlea-qz-yxvl is okay. Extrapyramidal System: As above. Speech: Normal. Assessment & Plan Assessment & Plan (1) Parkinsons disease: Code(s): G20.A1 - Parkinson's disease without dyskinesia, without mention of fluctuations Category: Medical Plan: Continue carbidopa-levodopa 25-100mg 1 tablet three times a day. Continue rasagiline mesylate 1mg 1 tablet daily. Stay physically active, use walker. Medications: Changed From rasagiline 1 mg PO DAILY To rasagiline 1 mg PO DAILY 90 tabs 1RF 90 days Refilled carbidopa-levodopa 25-100 mg (Sinemet) 1 tab PO TID 270 tabs 1RF 90 days Coding Level of Care Code Est Pt Level 4 (12022) Diagnoses Parkinsons disease G20.A1
--- OUTSIDE RECORDS SUMMARY | 2025-04-02 15:15 | XMS_ITS | Encounter Summary ---
Author Organization [facility] Address [address] [place] [address] Phone Care Team Providers Care Boat Garnisher Name Role Phone Leonid Ramsey MD Primary Care Provider Encounter Details Date Type Department Care Team (Late st Contact Info) Description 03/20/2025 Documentation Only [facility] [address] [place] [address] Oksana Carranza [address] [place] [address] Social History Tobacco Use Types Packs/Day Years [...] Care Team (Late st Contact Info) Description 06/17/2025 1:30 PM EST Office Visit [facility] [address] [place] [address] Sammy Martin MD [address] [place] [address] [place] [address] documented as of this encounter Visit Diagnoses Not on filedocumented in this encounter Care Teams Boat Garnisher Relationship Specialty Start Date End Date Leonid Ramsey MD [address] [place] [address] [address] [place] [address] PCP - General 04/15/19 documented as of this encounter
--- OUTSIDE RECORDS SUMMARY | 2025-04-02 15:15 | XMS_ITS | Encounter Summary ---
Author Organization [facility] Address [address] [place] [address] Phone Care Team Providers Care Avionics System Engineer Name Role Phone Leonid Ramsey MD Primary Care Provider Encounter Details Date Type Department Care Team (Late st Contact Info) Description 03/24/2025 Documentation Only [facility] [address] [place] [address] Oksana Carranza [address] [place] [address] Social History Tobacco Use Types [...] Visit [facility] [address] [place] [address] Sammy Martin MD [address] [place] [address] [place] [address] documented as of this encounter Visit Diagnoses Not on filedocumented in this encounter Care Teams Avionics System Engineer Relationship Specialty Start Date End Date Leonid Ramsey MD [address] [place] [address] [address] [place] [address] PCP - General 04/15/19 documented as of this encounter
--- OUTSIDE RECORDS SUMMARY | 2025-04-02 15:15 | XMS_ITS | Encounter Summary ---
Author Organization [facility] Address [address] [place] [address] Care Team Providers Care Tailor Garment Fitter Name Role Phone Leonid Ramsey MD Primary Care Provider [phone] Reason for Visit * Reason Onset Date Comments Appointment 03/26/2025 Encounter Details Date Type Department Care Team ([facility] st Contact Info) Description 03/26/2025 Telephone Gastroenterology - [place] [address] [facility] [address] [place] [phone] Abdirahman Somers MD [address] [place] [address] Social History Tobacco Use Types Packs/Day Years [...] on file documented as of this encounter Progress Notes * Clair Vásquez - 03/26/2025 3:25 PM EDT Received records from Dr. Ramsey's office for a consult for Esophageal Spasm. Patient stated that he is in pain and needed an appt now and then hung up. Advised him to ask PCP to refer him to another office to see if they have anything sooner. Referral scanned into media. documented in this encounter Plan of Treatment Not on file documented as of this encounter Visit Diagnoses Not on filedocumented in this encounter Care Teams Tailor Garment Fitter Relationship Specialty Start Date End Date Leonid Ramsey MD [address] [place] [address] [address] [place] [address] PCP - General 04/01/24 documented as of this encounter
--- OUTSIDE RECORDS SUMMARY | 2025-04-02 15:15 | XMS_ITS | Encounter Summary ---
Author Organization [facility] Address [address] [place] [address] Care Team Providers Care Mechanical Supervisor Name Role Phone Leonid Ramsey MD Primary Care Provider [phone] Encounter Details Date Type Department Care Team (Late st Contact Info) Description 02/28/2025 Lab Requisition [facility] - Main Lab [address] [place] [phone] Isha Sarmiento PA [address] [place] [address] Encounter for other general examination Social History Tobacco Use Types Packs/Day Years [...] Procedure Name Priority Date/Time Associated Diagnosis Comments CBC WITH AUTO DIFFERENTIAL Routine 02/28/2025 7:01 AM EDT Encounter for other general examination CBC AND DIFFERENTIAL Routine 02/28/2025 7:01 AM EDT Encounter for other general examination MAGNESIUM Routine 02/28/2025 7:01 AM EDT Encounter for other general examination COMPREHENSIVE METABOLIC PANEL Routine 02/28/2025 7:01 AM EDT Encounter for other general examination documented in this encounter Results * (ABNORMAL) CBC auto differential (02/28/2025 7:01 AM EDT) [facility] Signature WBC 6.6 4.8 - 10.8 K/mcL LAB HEMETOLOGY METHOD 02/28/2025 10:07 AM [facility] RBC 3.10(L) 4.50 - 5.50 M/mcL LAB HEMETOLOGY METHOD 02/28/2025 10:07 AM [facility] Hemoglobin 9.5(L) 13.5 - 17.5 g/dL LAB HEMETOLOGY METHOD 02/28/2025 10:07 AM [facility] Hematocrit 29.7(L) 42.0 - 54.0 % LAB HEMETOLOGY METHOD 02/28/2025 10:07 AM [facility] MCV 95.2 79.0 - 98.0 FL LAB HEMETOLOGY METHOD 02/28/2025 10:07 AM [facility] MCH 30.4 27.0 - 32.0 pcg LAB HEMETOLOGY METHOD 02/28/2025 10:07 AM [facility] MCHC 32.0 32.0 - 37.0 g/dL LAB HEMETOLOGY METHOD 02/28/2025 10:07 AM [facility] RDW 13.1 11.0 - 15.0 % LAB HEMETOLOGY METHOD 02/28/2025 10:07 AM [facility] Platelets 136 130 - 400 K/mcL LAB HEMETOLOGY METHOD 02/28/2025 10:07 AM [facility] MPV 9.9 7.0 - 11.0 FL LAB HEMETOLOGY METHOD 02/28/2025 10:07 AM [facility] NRBC 0.0 <1.0 % LAB HEMETOLOGY METHOD 02/28/2025 10:07 AM [facility] NRBC Absolute 0.00 <0.10 K/mcL LAB HEMETOLOGY METHOD 02/28/2025 10:07 AM [facility] Neutrophils Relative 71.1 % LAB HEMETOLOGY METHOD 02/28/2025 10:07 AM [facility] Lymphocytes Relative 9.9 % LAB HEMETOLOGY METHOD 02/28/2025 10:07 AM [facility] Monocytes Relative 10.0 % LAB HEMETOLOGY METHOD 02/28/2025 10:07 AM [facility] Eosinophils Relative 7.0 % LAB HEMETOLOGY METHOD 02/28/2025 10:07 AM [facility] Basophils Relative 0.9 % LAB HEMETOLOGY METHOD 02/28/2025 10:07 AM [facility] Immature Granulocytes Relative 1.1 % LAB HEMETOLOGY METHOD 02/28/2025 10:07 AM [facility] Neutrophils Absolute 4.67 1.50 - 7.00 K/mcL LAB HEMETOLOGY METHOD 02/28/2025 10:07 AM [facility] Lymphocytes Absolute 0.65(L) 1.00 - 5.00 K/mcL LAB HEMETOLOGY METHOD 02/28/2025 10:07 AM [facility] Monocytes Absolute 0.66 0.20 - 1.00 K/mcL LAB HEMETOLOGY METHOD 02/28/2025 10:07 AM [facility] Eosinophils Absolute 0.46 0.00 - 0.50 K/mcL LAB HEMETOLOGY METHOD 02/28/2025 10:07 AM [facility] Basophils Absolute 0.06 0.00 - 0.20 K/mcL LAB HEMETOLOGY METHOD 02/28/2025 10:07 AM [facility] Immature Granulocytes Absolute 0.07(H) 0.00 - 0.03 K/mcL LAB HEMETOLOGY METHOD 02/28/2025 10:07 AM [facility] Blood Venous blood specimen / Unknown Venipuncture / Unknown 02/28/2025 7:01 AM EDT 02/28/2025 9:32 AM EDT us Isha MONAE LAB BLOOD ORDERABLES Final Resu lt [facility] [address] [place] [address], [place] [phone] * (ABNORMAL) Comprehensive metabolic panel (02/28/2025 7:01 AM EDT) Sodium 139 133 - 145 mmol/L LAB CHEMISTRY METHOD 02/28/2025 10:49 AM [facility] Potassium 5.3 3.5 - 5.5 mmol/L LAB CHEMISTRY METHOD 02/28/2025 10:49 AM [facility] Chloride 108 96 - 110 mmol/L LAB CHEMISTRY METHOD 02/28/2025 10:49 AM [facility] CO2 27 21 - 32 mmol/L LAB CHEMISTRY METHOD 02/28/2025 10:49 AM [facility] Comment:Results verified by repeat testing Anion Gap 4 3 - 11 LAB CHEMISTRY METHOD 02/28/2025 10:49 AM [facility] Glucose 87 70 - 100 mg/dL LAB CHEMISTRY METHOD 02/28/2025 10:49 AM [facility] BUN 32(H) 5 - 25 mg/dL LAB CHEMISTRY METHOD 02/28/2025 10:49 AM [facility] Creatinine 1.74(H) 0.70 - 1.30 mg/dL LAB CHEMISTRY METHOD 02/28/2025 10:49 AM [facility] eGFR 37(L) >=60 mL/min/1. 73m2 LAB CHEMISTRY METHOD 02/28/2025 10:49 AM [facility] Comment:Calculation based on the Chronic Kidney Disease Epidemiology Collaboration (CKD-EPI) equation refit without adjustment for race. BUN/Creatinine Ratio 18.4 LAB CHEMISTRY METHOD 02/28/2025 10:49 AM [facility] Calcium 8.7 8.5 - 10.5 mg/dL LAB CHEMISTRY METHOD 02/28/2025 10:49 AM [facility] AST (SGOT) 20 10 - 42 unit/L LAB CHEMISTRY METHOD 02/28/2025 10:49 AM [facility] ALT (SGPT) 10 10 - 60 unit/L LAB CHEMISTRY METHOD 02/28/2025 10:49 AM [facility] Alkaline Phosphatase 55 42 - 121 unit/L LAB CHEMISTRY METHOD 02/28/2025 10:49 AM [facility] Total Protein 4.7(L) 6.0 - 8.0 g/dL LAB CHEMISTRY METHOD 02/28/2025 10:49 AM [facility] Albumin 2.6(L) 3.2 - 5.0 g/dL LAB CHEMISTRY METHOD 02/28/2025 10:49 AM [facility] Total Bilirubin 0.3 0.0 - 1.4 mg/dL LAB CHEMISTRY METHOD 02/28/2025 10:49 AM [facility] Blood Venous blood specimen / Unknown Venipuncture / Unknown 02/28/2025 7:01 AM EDT 02/28/2025 9:32 AM EDT us Isha MONAE LAB BLOOD ORDERABLES Final Resu lt [facility] [address] [place] [address], * (ABNORMAL) Magnesium (02/28/2025 7:01 AM EDT) Magnesium 1.7(L) 1.9 - 2.6 mg/dL LAB CHEMISTRY METHOD 02/28/2025 10:43 AM EDT [facility] Blood Venous blood specimen / Unknown Venipuncture / Unknown 02/28/2025 7:01 AM EDT 02/28/2025 9:32 AM EDT us Isha MONAE LAB BLOOD ORDERABLES Final Resu lt [facility] [address] [place] [address], documented in this encounter Visit Diagnoses Diagnosis Encounter for other general examination documented in this encounter Additional Health Concerns Infection Onset Date Last Indicated Resolved Time COVID-19 02/06/2025 02/06/2025 03/08/2025 7:04 PM EDT documented as of this encounter Care Teams Mechanical Supervisor Relationship Specialty Start Date End Date Leonid Ramsey MD [address] [place] [address] [address] [place] [address] PCP - General 04/01/24 documented as of this encounter
--- OUTSIDE RECORDS SUMMARY | 2025-04-02 15:15 | XMS_ITS | Encounter Summary ---
Author Organization [facility] Address [address] [place] [address] Phone Care Team Providers Care Trenching Machine Operator Name Role Phone Leonid Ramsey MD Primary Care Provider Encounter Details Date Type Department Care Team (Late Contact Info) Description 01/16/2025 Orders Only [facility] [address] [place] [address] Em Quesada [address] [place] [address] Chronic kidney disease stage 4 (HCC) Social History Tobacco Use Types Packs/Day Years [...] Visit [facility] [address] [place] [address] Sammy Martin MD [address] [place] [address] documented as of this encounter Visit Diagnoses Diagnosis Chronic kidney disease stage 4 (HCC) documented in this encounter Care Teams Trenching Machine Operator Relationship Specialty Start Date End Date Leonid Ramsey MD [address] [place] [address] [address] [place] [address] PCP - General 04/15/19 documented as of this encounter
--- OUTSIDE RECORDS SUMMARY | 2025-04-02 15:15 | XMS_ITS | Encounter Summary ---
Author Organization Address [address] [place] [address] Care Team Providers Care Unit Support Representative Name Role Phone Leonid Ramsey MD Primary Care Provider [phone] Encounter Details Date Type Department Care Team (Late st Contact Info) Description 09/08/[address] 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 Ileal Conduit, ([id number]): Negative for high grade urothelial carcinoma. Results of UroVysion fluorescence in situ hybridization (FISH) testing: Although FISH was performed, insufficient non-obscured hybridization signals are present for evaluation and interpretation. 09/12/2024 4:[address] 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 Gross Description A. Ileal Conduit, ([id number]): Received one ThinPrep slide for cytology and one ThinPrep slide for UroVysion FISH 09/12/2024 4:[address] [facility] Disclaimer Unless otherwise specified, all tissue is 10% NB formalin fixed and paraffin embedded. Technical pathology services provided by [facility] at [address] [place] [address] [address], [place] [address] (CLIA #[id number]/Giulia Ricci MD, Tour Bus Driver/Guide) 09/12/2024 4:[address] [facility] Tissue Ileal biopsy specimen / Unknown 09/03/2024 09/08/2024 10:23 AM EDT us Kashmir Huang MD LAB PATHOLOGY ORDERABLES Final Result 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
--- OUTSIDE RECORDS SUMMARY | 2025-04-02 15:15 | XMS_ITS | Encounter Summary ---
Author Organization [facility] Address [address] [place] [address] Phone Care Team Providers Care Reconciliation Analyst Name Role Phone Leonid Ramsey MD Primary Care Provider Encounter Details Date Type Department Care Team (Late st Contact Info) Description 03/20/2025 Documentation Only [facility] [address] [place] [address] Oksana Carranza [address] [place] [address] Social History Tobacco Use Types [...] Visit [facility] [address] [place] [address] Sammy Martin MD [address] [place] [address] [place] [address] documented as of this encounter Visit Diagnoses Not on filedocumented in this encounter Care Teams Reconciliation Analyst Relationship Specialty Start Date End Date Leonid Ramsey MD [address] [place] [address] [address] [place] [address] PCP - General 04/15/19 documented as of this encounter
--- OUTSIDE RECORDS SUMMARY | 2025-04-02 15:15 | XMS_ITS | Encounter Summary ---
Author Organization [facility] Address [address] [place] [address] Phone Care Team Providers Care Repairer Helper Name Role Phone Leonid Ramsey MD Primary Care Provider Encounter Details Date Type Department Care Team (Late st Contact Info) Description 03/20/2025 Documentation Only [facility] [address] [place] [address] Oksana Carranza [address] [place] [address] Social History Tobacco Use Types [...] Visit [facility] [address] [place] [address] Sammy Martin MD [address] [place] [address] [place] [address] documented as of this encounter Visit Diagnoses Not on filedocumented in this encounter Care Teams Repairer Helper Relationship Specialty Start Date End Date Leonid Ramsey MD [address] [place] [address] [address] [place] [address] PCP - General 04/15/19 documented as of this encounter
--- OUTSIDE RECORDS SUMMARY | 2025-04-02 15:16 | XMS_ITS | Clinical Summary ---
Author Organization [facility] Address [address] [place] [address] Care Team Providers Care Leather Sponger Name Role Phone Leonid Ramsey MD Primary Care Provider [phone] Allergies No known active allergies Medications Medication [...] Advance Directives For more information, please contact: [phone] Documents on File Type Date Recorded Patient Surveillance Monitor Expl anation Advance Directive and Living Will 04/15/2024 10:46 AM Health Care Proxy Latest Code Status on File Code Status Date Activated Date Inactivated Comments Full Code 04/01/2024 11:39 PM 04/04/2024 9:53 PM Th is code status was ascertained in the following way: discussion with patient . Care Teams Leather Sponger Relationship Specialty Start Date End Date Leonid Ramsey MD [address] [place] [address] [address] [place] [address] PCP - General Business Development Consultant 04/01/24
--- OUTSIDE RECORDS SUMMARY | 2025-04-02 15:16 | XMS_ITS | Clinical Summary ---
Author Organization [facility] Address [address] [place] [address] [place] [address] Phone Care Team Providers Care Greenhouse Laborer Name Role Phone Leonid Ramsey MD Primary [...] Encounters Date Type Department Care Team Description 03/24/2025 Documentation Only [facility] [address] [place] [address] Oksana Carranza 03/20/2025 Documentation Only [facility] [address] [place] [address] Oksana Carranza 03/20/2025 Documentation Only [facility] [address] [place] [address] Oksana Carranza 03/20/2025 Documentation Only [facility] [address] [place] [address] Oksana Carranza 03/20/2025 Orders Only [facility] [address] [place] [address] Oksana Carranza 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); Chronic kidney disease stage 4 (HCC); Iron deficiency anemia, not otherwise specified 03/20/2025 Office Communication [facility] [address] [place] [address] TereOksana boone 03/06/2025 Telephone [facility] [address] [place] [address] TereOksana boone 03/06/2025 Orders Only [facility] [address] [place] [address] Oksana Carranza Fatigue (Primary Dx); Absent kidney; Chronic kidney disease stage 4 (HCC) 03/04/2025 3:15 PM EDT Office Visit [facility] [address] [place] [address] Sammy Martin MD Iron deficiency anemia, not otherwise specified (Primary Dx); Chronic kidney disease, stage 4 (severe) (HCC); Anemia in chronic kidney disease; Absent kidney; Malignant neoplasm of urinary bladder (HCC); Hypertension; Hyperkalemia 02/24/2025 Orders Only [facility] [address] [place] [address] Emily Mcgregor [place] Chronic kidney disease, stage 4 (severe) (HCC) (Primary Dx); Anemia in chronic kidney disease; Malignant neoplasm of urinary bladder (HCC) 01/16/2025 Orders Only [facility] [address] [place] [address] [place] [phone] Em Quesada Chronic kidney disease stage 4 (HCC) from Last 3 Months Immunizations Immunization Administration [...] Sign Reading Time Taken Comments Blood Pressure 124/51 03/04/2025 3:44 PM EDT Pulse - - Temperature - - Respiratory Rate - - Oxygen Saturation - - Inhaled Oxygen Concentration - - Weight 73 kg (161 lb) 03/04/2025 3:44 PM EDT Height 177.8 cm (5' 10 ) 05/14/2019 12:00 PM EST Body Mass Index 23.1 05/14/2019 12:00 PM EST Plan of Treatment Upcoming Encounters Date Type Department Care Team (Late st Contact Info) Description 06/17/2025 1:30 PM EST Office Visit [facility] [address] [address] Sammy Martin MD [address] [facility] [address] [place] [phone] Health Maintenance Due Date Last Done Comments [...] on patient's age to complete this topic Procedures Procedure Name Priority Date/Time Associated Diagnosis Comments RENAL FUNCTION PANEL Routine 03/10/2025 2:18 PM EDT Fatigue Absent kidney Chronic kidney disease stage 4 (HCC) FERRITIN Routine 03/10/2025 2:18 PM EDT Fatigue Absent kidney Chronic kidney disease stage 4 (HCC) IRON PANEL (FE, TIBC, TSAT) Routine 03/10/2025 2:18 PM EDT Fatigue Absent kidney Chronic kidney disease stage 4 (HCC) CBC AND DIFFERENTIAL Routine 03/10/2025 2:18 PM EDT Fatigue Absent kidney Chronic kidney disease stage 4 (HCC) from Last 3 Months Results * (ABNORMAL) Iron Panel (Fe, TIBC, TSAT) (03/10/2025 2:18 PM EDT) TIBC 203(L) 250 - 450 ug/dL [facility] UIBC 140 111 - 343 ug/dL [facility] Iron 63 38 - 169 ug/dL [facility] Iron Saturation (TSat) 31 15 - 55 % [facility] Blood Venous blood / Unknown 03/10/2025 2:18 PM EDT 03/10/2025 us Sammy Martin MD LAB BLOOD ORDERABLES Final Result [facility] [address] [place] [address] * (ABNORMAL) CBC and Differential (03/10/2025 2:18 PM EDT) WBC 4.9 3.4 - 10.8 x10E3/uL [facility] RBC 2.98(L) 4.14 - 5.80 x10E6/uL [facility] Hemoglobin 9.3(L) 13.0 - 17.7 g/dL [facility] Hematocrit 30.1(L) 37.5 - 51.0 % [facility] MCV 101(H) 79 - 97 fL [facility] MCH 31.2 26.6 - 33.0 pg [facility] MCHC 30.9(L) 31.5 - 35.7 g/dL [facility] RDW 13.0 11.6 - 15.4 % [facility] Platelets 281 150 - 450 x10E3/uL [facility] Neutrophils Relative 67 Not Estab. % [facility] Lymphocytes Relative 12 Not Estab. % [facility] Monocytes 11 Not Estab. % [facility] Eosinophils Relative 7 Not Estab. % [facility] Basophils Relative 2 Not Estab. % [facility] Neutrophils Absolute 3.3 1.4 - 7.0 x10E3/uL [facility] Lymphocytes Absolute 0.6(L) 0.7 - 3.1 x10E3/uL [facility] Monocytes Absolute 0.5 0.1 - 0.9 x10E3/uL [facility] Eosinophils Absolute 0.3 0.0 - 0.4 x10E3/uL [facility] Basophils Absolute 0.1 0.0 - 0.2 x10E3/uL [facility] Immature Granulocytes 0 Not Estab. % [facility] Immature Grans (Absolute) 0.0 0.0 - 0.1 x10E3/uL [facility] Blood Venous blood / Unknown 03/10/2025 2:18 PM EDT 03/10/2025 Sammy Martin MD LAB BLOOD ORDERABLES Final Result Performing Organization Address City/[facility]/ZIP Co de Phone Number [facility] [address] [place] [address] * Ferritin (03/10/2025 2:18 PM EDT) Pathologist [facility] Ferritin 196 30 - 400 ng/mL [facility] Blood Venous blood / Unknown 03/10/2025 2:18 PM EDT 03/10/2025 Sammy Martin MD LAB BLOOD ORDERABLES Final Result Performing Organization Address [facility] de Phone Number [facility] [address] [place] [address] * (ABNORMAL) Renal Function Panel (03/10/2025 2:18 PM EDT) Glucose 104(H) 70 - 99 mg/dL [facility] BUN 41(H) 8 - 27 mg/dL [facility] Creatinine 2.95(H) 0.76 - 1.27 mg/dL [facility] eGFR CKD-EPI CR 2020 20(L) >59 mL/min/1.7 3 [facility] BUN/Creatinine Ratio 14 10 - 24 [facility] Sodium 140 134 - 144 mmol/L [facility] Potassium 4.9 3.5 - 5.2 mmol/L [facility] Chloride 103 96 - 106 mmol/L [facility] Bicarbonate (CO2) 20 20 - 29 mmol/L [facility] Calcium 8.4(L) 8.6 - 10.2 mg/dL [facility] Phosphorus 3.2 2.8 - 4.1 mg/dL [facility] Albumin 3.8 3.7 - 4.7 g/dL [facility] Blood Venous blood / Unknown 03/10/2025 2:18 PM EDT 03/10/2025 Sammy Martin MD LAB BLOOD ORDERABLES Final Result [facility] [address] [place] [address] from Last 3 Months Insurance Medicare [facility] Care Teams Greenhouse Laborer Relationship Specialty Start Date End Date Leonid Ramsey MD [address] [place] [address] [address] [place] [address] PCP - General 04/15/19
--- OUTSIDE RECORDS SUMMARY | 2025-04-02 15:16 | XMS_ITS | Continuity of Care Document ---
Author Organization [facility] [address] [place] [address] Phone [phone] Problems Active Problems Provider Date Type 2 [...] SIG Qnty Indications Order ing Provider Date Sertraline EUX66gs Tablets 1 tablet by mouth every morning 30tabs Leonid Ramsey M.D. 03/11/2025 Ativan0.5mg Tablets 1 tab orally 1 hour before procedure 1tabs Leonid Ramsey M.D. 05/31/2023 Carbidopa-Kwzjfzbv27 -100mg Tablets Take 1 Tablet By Mouth Twice A Day 180tabs Leonid Ramsey M.D. 04/25/2023 Fwxmyt88ca Tablets tab by mouth every day Leonid Ramsey M.D. 02/17/2022 Tramadol CMB94ev Tablets Take 1 Tablet By Mouth Twice A Day as Needed Unknown Dwchfpiugzv53gm Tablets Take 1 Tablet By Mouth Every Day 90tabs Leonid Ramsey M.D. Gdoezkhepr22hq Capsules DR Take 1 Capsule By Mouth Every Day 90caps Leonid Ramsey M.D. Ijlfaghlu14pk Tablets 1 tab by mouth every day 90tabs Unknown Sodium Odaiggsegyc065er Tablets Take 1 Tablet By Mouth Three Times A Day Unknown Rasagiline Curzgiea8xc Tablets 1 tab by mouth every day 90tabs Kenna Lee MD Vital Signs Date Vital Result Comment 03/11/2025 2:55pm BP Systolic 140 mmHg BP Diastolic 80 mmHg Heart Rate 72 /min Height 71 inches 5'11 Weight 153.50 lb BMI (Body Mass Index) 21.4 kg/m2 Results Test Acquired Date Facility Test [...] Date Location Provider Dx Diagnosis Office Visit 03/17/2025 9:14a Main Office Leonid Ramsey M.D. I10 Essential (primary) hypertension E11.9 Type 2 diabetes deonte itus without complications Assessments Date Code Description Provider 03/17/2025 I10 Hypertensive disorder Leonid lebron M.D. 03/17/2025 E11.9 Type 2 diabetes mellitus without complications Leonid Ramsey M.D. Plan of Treatment Future Appointment(s):* 06/30/2025 1:45 pm - Leonid Ramsey M.D. at Main Office 03/11/2025 - Leonid Ramsey M.D.* N18.4 Chronic kidney disease stage 4 * I10 Hypertensive disorder * R54 Asthenia * E11.9 Type 2 diabetes mellitus without complications * Functional Status Description No Information Available Mental Status Description No Information Available Referrals Refer to Reason for Referral Status Appt Geoffrey e [facility] Modeler Esophageal Spasm Pat ient Declined [address] [place] [address] [phone] Kenna Lee MD FOLLOW UP PARKINSON'S DISEASE C losed 01/01/2024 [address] [place], [place] [id number] [phone] [facility] Neurology FOLLOW UP PARKINSON'S DISEASE Close d [address] [place] [address] [phone] [facility] SEVERE LOW BACK PA IN Closed 06/12/2023 [address] [place], [place] [id number] [phone]
--- OUTSIDE RECORDS SUMMARY | 2025-04-02 15:16 | XMS_ITS | Clinical Summary ---
Author Organization [address] [facility] Address [address] [place] [address] Phone Care Team Providers Care Credit Professional Name Role Phone Leonid Ramsey MD Primary Care Provider [phone] Allergies No known active allergies Medications No known medications Active Problems No known active problems Encounters Date Type Department Care Team Description 03/26/2025 Telephone Gastroenterology [facility] [address] [facility] [address] [facility] [address] [place] [phone] Abdirahman Somers MD 03/03/2025 Lab Requisition [facility] [address] [place] [phone] Celeste Gill MD Encounter for other general examination 02/28/2025 Lab Requisition [facility] [address] [place] [phone] Isha Sarmiento PA Encounter for other general examination 02/06/2025 6:05 PM EDT - 02/06/2025 9:05 PM EDT [facility] Emergency [address] [place] [phone] COVID-19 (Primary Dx) Discharge Disposition: Home or Self Care 01/26/2025 3:46 PM EDT - 01/26/2025 7:48 PM EDT [facility] Emergency [address] [place] [phone] Chest pain, unspecified type (Primary Dx) Discharge Disposition: Home or Self Care from Last 3 Months Surgical History Surgery Date Site/Laterality Comments BLADDER SURGERY PROCEDURE:BLADDER SURGERY Medical History Medical History Date Comments Lymphoma ([facility] V24, [facility] V28) DX:Lymphoma (HCC) Parkinson's disease ([facility] V24, [facility] V28) DX:Parkinson's disease (HCC) Bladder cancer ([facility] V24, [facility] V28) DX:Bladder cancer (HCC) Family History Medical History Relation Name Comments [...] on file Sexual Orientation Not on file Obstetrics History Last Filed Vital Signs Vital Sign Reading Time Taken Comments Blood Pressure 168/81 02/06/2025 8:48 PM EDT Pulse 68 02/06/2025 8:48 PM EDT Temperature 36.5 C (97.7 F) 02/06/2025 6:03 PM EDT Respiratory Rate 20 02/06/2025 8:48 PM EDT Oxygen Saturation 99% 02/06/2025 8:48 PM EDT Inhaled Oxygen Concentration - - Weight 72.6 kg (160 lb) 02/06/2025 6:03 PM EDT Height 175.3 cm (5' 9 ) 02/06/2025 6:03 PM EDT Body Mass Index 23.63 02/06/2025 6:03 PM EDT Plan of Treatment Health Maintenance Due Date Last Done Comments Diabetes: Annual Foot Exam 1945 Diabetes: Annual Retina Eye Exam 1945 Zoster Vaccines (1 of 2) 01/25/1956 RSV Immunization Adult Patients (1 - 1-dose 75+ series) 01/25/2012 Pneumococcal Vaccine: 50+ Years (3 of 3 - PCV) 03/25/2020 03/25/2019, 01/20/2015 Cholesterol Screening (Lipid Panel) 05/13/2022 Falls Risk Assessment 05/13/2022 Medicare Annual Wellness Visit 05/13/2022 Social Influencers of Health Screening 05/13/2022 Diabetes: Blood Sugar Control Test (HGBA1C) 04/28/2024 Depression Screening 06/11/2024 COVID-19 Vaccine (6 - Pfizer risk season) 2025 03/22/2024, 03/13/2023, 03/21/2022, Additional history exists Influenza Vaccine (#1) 2025 , 03/13/2023, 03/21/2022, Additional history exists Hypertension/CHF/CAD Annual BMP Blood Test 03/03/2026 03/03/2025, 02/28/2025, 02/06/2025, Additional history exists DTaP,Tdap,and Td Vaccines (2 - Td or Tdap) 01/19/2032 01/18/2022 HIB Vaccines Aged Out No longer eligi ble based on patient's age to complete this topic HPV Vaccines Aged Out No longer eligi ble based on patient's age to complete this topic Hepatitis A Vaccines Aged Out No long er eligible based on patient's age to complete this topic Hepatitis B Vaccines Aged Out No long er eligible based on patient's age to complete this topic IPV Vaccines Aged Out No longer eligi ble based on patient's age to complete this topic MMR Vaccines Aged Out No longer eligi ble based on patient's age to complete this topic Meningococcal ACWY Vaccine Aged Out N o longer eligible based on patient's age to complete this topic Meningococcal B Vaccine Aged Out No l onger eligible based on patient's age to complete this topic RSV Immunization Patients Under 20 months Aged Out No longer eligible based on patient's age to complete this topic Varicella Vaccines Aged Out No longer eligible based on patient's age to complete this topic Procedures Procedure Name Priority Date/Time Associated Diagnosis Comments CBC WITH AUTO DIFFERENTIAL Routine 03/03/2025 5:19 AM EDT Encounter for other general examination CBC AND DIFFERENTIAL Routine 03/03/2025 5:19 AM EDT Encounter for other general examination BASIC METABOLIC PANEL Routine 03/03/2025 5:19 AM EDT Encounter for other general examination CBC WITH AUTO DIFFERENTIAL Routine 02/28/2025 7:01 AM EDT Encounter for other general examination COMPREHENSIVE METABOLIC PANEL Routine 02/28/2025 7:01 AM EDT Encounter for other general examination MAGNESIUM Routine 02/28/2025 7:01 AM EDT Encounter for other general examination CBC AND DIFFERENTIAL Routine 02/28/2025 7:01 AM EDT Encounter for other general examination TROPONIN I HIGH SENSITIVITY STAT 02/06/2025 7:33 PM EDT XR CHEST 2 VIEWS STAT 02/06/2025 7:22 PM EDT D-DIMER STAT 02/06/2025 6:54 PM EDT FRNH-HEQ4-IIR, RSV, FLU A AND B QUALITATIVE RT-PCR, INTERNAL LAB STAT 02/06/2025 6:43 PM EDT CBC WITH AUTO DIFFERENTIAL STAT 02/06/2025 6:19 PM EDT TROPONIN I HIGH SENSITIVITY STAT 02/06/2025 6:19 PM EDT BASIC METABOLIC PANEL STAT 02/06/2025 6:19 PM EDT CBC AND DIFFERENTIAL STAT 02/06/2025 6:19 PM EDT ECG 12-LEAD STAT 02/06/2025 6:12 PM EDT XR CHEST 2 VIEWS STAT 01/26/2025 5:33 PM EDT CBC WITH AUTO DIFFERENTIAL STAT 01/26/2025 3:54 PM EDT TROPONIN I HIGH SENSITIVITY STAT 01/26/2025 3:54 PM EDT CBC AND DIFFERENTIAL STAT 01/26/2025 3:54 PM EDT BASIC METABOLIC PANEL STAT 01/26/2025 3:54 PM EDT ECG 12-LEAD STAT 01/26/2025 3:52 PM EDT from Last 3 Months Results * (ABNORMAL) CBC auto differential (03/03/2025 5:19 AM EDT) Only the most recent of4 resultswithin the time period is included. WBC 8.7 4.8 - 10.8 K/mcL LAB HEMETOLOGY METHOD 03/03/2025 9:23 AM [facility] RBC 2.60(L) 4.50 - 5.50 M/mcL LAB HEMETOLOGY METHOD 03/03/2025 9:23 AM [facility] Hemoglobin 8.2(L) 13.5 - 17.5 g/dL LAB HEMETOLOGY METHOD 03/03/2025 9:23 AM [facility] Hematocrit 26.0(L) 42.0 - 54.0 % LAB HEMETOLOGY METHOD 03/03/2025 9:23 AM [facility] MCV 98.9(H) 79.0 - 98.0 FL LAB HEMETOLOGY METHOD 03/03/2025 9:23 AM [facility] MCH 31.2 27.0 - 32.0 pcg LAB HEMETOLOGY METHOD 03/03/2025 9:23 AM [facility] MCHC 31.5(L) 32.0 - 37.0 g/dL LAB HEMETOLOGY METHOD 03/03/2025 9:23 AM [facility] RDW 13.2 11.0 - 15.0 % LAB HEMETOLOGY METHOD 03/03/2025 9:23 AM [facility] Platelets 160 130 - 400 K/mcL LAB HEMETOLOGY METHOD 03/03/2025 9:23 AM [facility] MPV 9.7 7.0 - 11.0 FL LAB HEMETOLOGY METHOD 03/03/2025 9:23 AM [facility] NRBC 0.0 <1.0 % LAB HEMETOLOGY METHOD 03/03/2025 9:23 AM [facility] NRBC Absolute 0.00 <0.10 K/mcL LAB HEMETOLOGY METHOD 03/03/2025 9:23 AM [facility] Neutrophils Relative 75.2 % LAB HEMETOLOGY METHOD 03/03/2025 9:23 AM [facility] Lymphocytes Relative 9.7 % LAB HEMETOLOGY METHOD 03/03/2025 9:23 AM [facility] Monocytes Relative 8.6 % LAB HEMETOLOGY METHOD 03/03/2025 9:23 AM [facility] Eosinophils Relative 4.9 % LAB HEMETOLOGY METHOD 03/03/2025 9:23 AM [facility] Basophils Relative 0.6 % LAB HEMETOLOGY METHOD 03/03/2025 9:23 AM [facility] Immature Granulocytes Relative 1.0 % LAB HEMETOLOGY METHOD 03/03/2025 9:23 AM [facility] Neutrophils Absolute 6.57 1.50 - 7.00 K/mcL LAB HEMETOLOGY METHOD 03/03/2025 9:23 AM [facility] Lymphocytes Absolute 0.85(L) 1.00 - 5.00 K/mcL LAB HEMETOLOGY METHOD 03/03/2025 9:23 AM [facility] Monocytes Absolute 0.75 0.20 - 1.00 K/mcL LAB HEMETOLOGY METHOD 03/03/2025 9:23 AM [facility] Eosinophils Absolute 0.43 0.00 - 0.50 K/mcL LAB HEMETOLOGY METHOD 03/03/2025 9:23 AM EDT [facility] Basophils Absolute 0.05 0.00 - 0.20 K/mcL LAB HEMETOLOGY METHOD 03/03/2025 9:23 AM EDT [facility] Immature Granulocytes Absolute 0.09(H) 0.00 - 0.03 K/mcL LAB HEMETOLOGY METHOD 03/03/2025 9:23 AM [facility] Blood Venous blood specimen / Unknown Venipuncture / Unknown 03/03/2025 5:19 AM EDT 03/03/2025 8:32 AM EDT us Celeste Gill MD LAB BLOOD ORDERABLES Final Resu lt [facility] [address] [place] [address], [place] [phone] * (ABNORMAL) Basic metabolic panel (03/03/2025 5:19 AM EDT) Only the most recent of3 resultswithin the time period is included. Sodium 141 133 - 145 mmol/L LAB CHEMISTRY METHOD 03/03/2025 9:55 AM [facility] Potassium 5.1 3.5 - 5.5 mmol/L LAB CHEMISTRY METHOD 03/03/2025 9:55 AM [facility] Chloride 109 96 - 110 mmol/L LAB CHEMISTRY METHOD 03/03/2025 9:55 AM [facility] CO2 28 21 - 32 mmol/L LAB CHEMISTRY METHOD 03/03/2025 9:55 AM [facility] Anion Gap 4 3 - 11 LAB CHEMISTRY METHOD 03/03/2025 9:55 AM [facility] Glucose 68(L) 70 - 100 mg/dL LAB CHEMISTRY METHOD 03/03/2025 9:55 AM [facility] BUN 35(H) 5 - 25 mg/dL LAB CHEMISTRY METHOD 03/03/2025 9:55 AM EDT [facility] Creatinine 2.23(H) 0.70 - 1.30 mg/dL LAB CHEMISTRY METHOD 03/03/2025 9:55 AM EDT [facility] eGFR 28(L) >=60 mL/min/1. 73m2 LAB CHEMISTRY METHOD 03/03/2025 9:55 AM EDT [facility] Comment:Calculation based on the Chronic Kidney Disease Epidemiology Collaboration (CKD-EPI) equation refit without adjustment for race. BUN/Creatinine Ratio 15.7 LAB CHEMISTRY METHOD 03/03/2025 9:55 AM EDT [facility] Calcium 8.4(L) 8.5 - 10.5 mg/dL LAB CHEMISTRY METHOD 03/03/2025 9:55 AM EDT [facility] Blood Venous blood specimen / Unknown Venipuncture / Unknown 03/03/2025 5:19 AM EDT 03/03/2025 8:32 AM EDT us Celeste Gill MD LAB BLOOD ORDERABLES Final Resu lt [facility] [address] [place] [address], [place] [phone] * (ABNORMAL) Magnesium (02/28/2025 7:01 AM EDT) Magnesium 1.7(L) 1.9 - 2.6 mg/dL LAB CHEMISTRY METHOD 02/28/2025 10:43 AM EDT [facility] Blood Venous blood specimen / Unknown Venipuncture / Unknown 02/28/2025 7:01 AM EDT 02/28/2025 9:32 AM EDT us Isha MONAE LAB BLOOD ORDERABLES Final Resu lt [facility] [address] [place] [address], [place] [phone] * (ABNORMAL) Comprehensive metabolic panel (02/28/2025 7:01 AM EDT) [facility] Sodium 139 133 - 145 mmol/L LAB CHEMISTRY METHOD 02/28/2025 10:49 AM [facility] Potassium 5.3 3.5 - 5.5 mmol/L LAB CHEMISTRY METHOD 02/28/2025 10:49 AM [facility] Chloride 108 96 - 110 mmol/L LAB CHEMISTRY METHOD 02/28/2025 10:49 AM [facility] CO2 27 21 - 32 mmol/L LAB CHEMISTRY METHOD 02/28/2025 10:49 AM [facility] Comment:Results verified by repeat testing Anion Gap 4 3 - 11 LAB CHEMISTRY METHOD 02/28/2025 10:49 AM [facility] Glucose 87 70 - 100 mg/dL LAB CHEMISTRY METHOD 02/28/2025 10:49 AM [facility] BUN 32(H) 5 - 25 mg/dL LAB CHEMISTRY METHOD 02/28/2025 10:49 AM [facility] Creatinine 1.74(H) 0.70 - 1.30 mg/dL LAB CHEMISTRY METHOD 02/28/2025 10:49 AM [facility] eGFR 37(L) >=60 mL/min/1. 73m2 LAB CHEMISTRY METHOD 02/28/2025 10:49 AM [facility] Comment:Calculation based on the Chronic Kidney Disease Epidemiology Collaboration (CKD-EPI) equation refit without adjustment for race. BUN/Creatinine Ratio 18.4 LAB CHEMISTRY METHOD 02/28/2025 10:49 AM [facility] Calcium 8.7 8.5 - 10.5 mg/dL LAB CHEMISTRY METHOD 02/28/2025 10:49 AM [facility] AST (SGOT) 20 10 - 42 unit/L LAB CHEMISTRY METHOD 02/28/2025 10:49 AM EDT [facility] ALT (SGPT) 10 10 - 60 unit/L LAB CHEMISTRY METHOD 02/28/2025 10:49 AM EDT [facility] Alkaline Phosphatase 55 42 - 121 unit/L LAB CHEMISTRY METHOD 02/28/2025 10:49 AM EDT [facility] Total Protein 4.7(L) 6.0 - 8.0 g/dL LAB CHEMISTRY METHOD 02/28/2025 10:49 AM EDT [facility] Albumin 2.6(L) 3.2 - 5.0 g/dL LAB CHEMISTRY METHOD 02/28/2025 10:49 AM EDT [facility] Total Bilirubin 0.3 0.0 - 1.4 mg/dL LAB CHEMISTRY METHOD 02/28/2025 10:49 AM EDT [facility] Blood Venous blood specimen / Unknown Venipuncture / Unknown 02/28/2025 7:01 AM EDT 02/28/2025 9:32 AM EDT us Isha MONAE LAB BLOOD ORDERABLES Final Resu lt [facility] [address] [place] [address], * Troponin I high sensitivity (02/06/2025 7:33 PM EDT) Only the most recent of3 resultswithin the time period is included. High Sensitivity Troponin I 13 0 - 20 ng/L LAB CHEMISTRY METHOD 02/06/2025 7:59 PM EDT [facility] Blood Venous blood specimen / Unknown Venipuncture / Unknown 02/06/2025 7:33 PM EDT 02/06/2025 7:35 PM EDT Narrative [facility] - 02/06/2025 7:59 PM EDT HSTnI results stratify to HIGH RISK category if any value >100 ng/L or delta at 1 hour is greater than or equal to 15 ng/L (male and female). Note: Delta values are not applicable if symptoms began more than 12 hours pre-arrival. Risk stratification should include the calculation of the HEART score. Testing performed using [employer] [place] Access AccuTnI+3 Assay. Ramona MONAE LAB BLOOD ORDERABLES Final Re sult [facility] [address] [place] [address], [place] [phone] * XR Chest 2 Views (02/06/2025 7:22 PM EDT) Only the most recent of2 resultswithin the time period is included. Anatomical Region Laterality Modality Body Radiographic Shante ging 02/06/2025 8:14 PM EDT Impressions 02/06/2025 8:15 PM EDT No acute cardiopulmonary process. -------- FINAL REPORT -------- Dictated By: Pat Dennis Dictated Date: 02/06/2025 20:14 ET Assigned Physician: Pat Dennis Reviewed and Electronically Signed By: Pat Dennis Signed Date: 02/06/2025 20:15 ET Workstation ID: [id number] Transcribed By: Self Edit Transcribed Date: 02/06/2025 20:14 ET Narrative 02/06/2025 8:15 PM EDT HISTORY: pain TECHNIQUE: PA and lateral radiographs of the chest COMPARISON: Chest radiograph from 01/26/2025 FINDINGS: There is a normal cardiomediastinal silhouette. Atherosclerosis of the thoracic aorta. The lungs are clear. Moderate degenerative changes of the thoracic spine. Procedure Note Pat Dennis MD - 02/06/2025 HISTORY: pain TECHNIQUE: PA and lateral radiographs of the chest COMPARISON: Chest radiograph from 01/26/2025 FINDINGS: There is a normal cardiomediastinal silhouette. Atherosclerosis of thethoracic aorta. The lungs are clear. Moderate degenerative changes of thethoracic spine. IMPRESSION: No acute cardiopulmonary process. -------- FINAL REPORT -------- Dictated By: Pat Dennis Dictated Date: 02/06/2025 20:14 ET Assigned Physician: Pat Dennis Reviewed and Electronically Signed By: Pat Dennis Signed Date: 02/06/2025 20:15 ET Workstation ID: [id number] Transcribed By: Self Edit Transcribed Date: 02/06/2025 20:14 ET Ramona MONAE IMG XR PROCEDURES Final Resul t * (ABNORMAL) D-dimer, quantitative (02/06/2025 6:54 PM EDT) [facility] D-Dimer, Quant (D-DU) 335(H) <231 ng/mL DDU LAB COAGULATION METHOD 02/06/2025 7:08 PM EDT [facility] Blood Venous blood specimen / Unknown Venipuncture / Unknown 02/06/2025 6:54 PM EDT 02/06/2025 6:56 PM EDT Narrative [facility] - 02/06/2025 7:08 PM EDT This assay has been approved by the Food and Drug Administration (FDA) for use in excluding low and moderate risk patients suspected of venous thromboembolism, including deep vein thrombosis (DVT) and pulmonary embolism (PE) when used in conjunction with a clinical Pre test Probability model such as Wells, et al. The D Dimer result should not be used alone to rule in DVT and or PE. Ramona MONAE LAB BLOOD ORDERABLES Final Re sult [facility] [address] [place] [address], [place] [phone] * (ABNORMAL) [id number], RSV, Influenza A and B qualitative RT-PCR (02/06/2025 6:43 PM EDT) [facility] Influenza A PCR Negative Negative LAB MOLECULAR DIAGNOSTICS METHOD 02/06/2025 7:30 PM EDT [facility] Influenza B PCR Negative Negative LAB MOLECULAR DIAGNOSTICS METHOD 02/06/2025 7:30 PM EDT [facility] RSV PCR Negative Negative LAB MOLECULAR DIAGNOSTICS METHOD 02/06/2025 7:30 PM EDT [facility] SARS COV-2 Positive(A) Negative LAB MOLECULAR DIAGNOSTICS METHOD 02/06/2025 7:30 PM EDT [facility] Swab Both anterior nares / Unknown Non-blood Collection / Unknown 02/06/2025 6:43 PM EDT 02/06/2025 6:49 PM EDT Narrative [facility] - 02/06/2025 7:30 PM EDT This test has been authorized by FDA under an emergency used authorization (EUA). This EUA will cease to be effective when declared by [facility] that circumstances exist to justify its termination under section 564(bB)(2) of the Federal Food, Drug, and Cosmetic Act (The Act) 21 U.S.C. 360bbb 30,or when the EUA is revoked under section 564 (g) of the Act. Testing was performed using the [employer] Gene Xpert Xpress SARS-CoV2/FLU/RSV test. Negative results do not preclude SARS COV-2 test infection and should not be used as a sole basis for treatment or other patient management decisions. Negative results must be combined with clinical observation, patient history, and epidemiological information. us Ramona MONAE LAB MICROBIOLOGY - GENERAL OR DERABLES Final Result [facility] [address] [place] [address], [place] [phone] * ECG 12 lead (02/06/2025 6:12 PM EDT) Only the most recent of2 resultswithin the time period is included. 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) Abnormal ECG When compared with ECG of 26-JAN-2025 15:52, fusion complexes are no longer present premature ventricular complexes are no longer present T wave inversion no longer evident in Anterior leads Confirmed by Viky Rincon ([id number]) on 02/10/2025 10:05:20 AM GEMUSE 02/06/2025 6:12 PM EDT 02/10/2025 10:05 AM EDT us Lisandro Gudino MD ECG ORDERABLES Final Result GEMUSE from Last 3 Months Insurance MEDICARE [facility] Care Teams Credit Professional Relationship Specialty Start Date End Date Leonid Ramsey MD [address] [place] [address] [address] [place] [phone] [facility] - General 04/01/24
--- OUTSIDE RECORDS SUMMARY | 2025-04-02 15:16 | XMS_ITS | Encounter Summary ---
Author Organization [facility] Address [address] [place] [address] Care Team Providers Care Internal Carver Name Role Phone Leonid Ramsey MD Primary Care Provider [phone] Encounter Details Date Type Department Care Team (Late st Contact Info) Description 03/03/2025 Lab Requisition [facility] Lab [address] [place] [address] Celeste Gill MD [address] [place] [id number] Encounter for other general examination Social History [...] encounter Results * (ABNORMAL) CBC auto differential (03/03/2025 5:19 AM EDT) [facility] Signature WBC 8.7 4.8 - 10.8 K/mcL LAB [...] 03/03/2025 9:23 AM [facility] Basophils Absolute 0.05 0.00 - 0.20 K/mcL LAB HEMETOLOGY METHOD 03/03/2025 9:23 AM [facility] Immature Granulocytes Absolute 0.09(H) 0.00 - 0.03 K/mcL LAB HEMETOLOGY METHOD 03/03/2025 9:23 AM [facility] Blood Venous blood specimen / Unknown Venipuncture / Unknown 03/03/2025 5:19 AM EDT 03/03/2025 8:32 AM EDT us Celeste Gill MD LAB BLOOD ORDERABLES Final Resu lt [facility] [address] [place] [address], * (ABNORMAL) Basic metabolic panel (03/03/2025 5:19 AM EDT) Sodium 141 133 - 145 mmol/L LAB [...] METHOD 03/03/2025 9:55 AM [facility] Creatinine 2.23(H) 0.70 - 1.30 mg/dL LAB CHEMISTRY METHOD 03/03/2025 9:55 AM [facility] eGFR 28(L) >=60 mL/min/1. 73m2 LAB CHEMISTRY METHOD 03/03/2025 9:55 AM EDT [facility] Comment:Calculation based on the Chronic Kidney Disease Epidemiology Collaboration (CKD-EPI) equation refit without adjustment for race. BUN/Creatinine Ratio 15.7 LAB CHEMISTRY METHOD 03/03/2025 9:55 AM EDT [facility] Calcium 8.4(L) 8.5 - 10.5 mg/dL LAB CHEMISTRY METHOD 03/03/2025 9:55 AM EDT [facility] Blood Venous blood specimen / Unknown Venipuncture / Unknown 03/03/2025 5:19 AM EDT 03/03/2025 8:32 AM EDT us Celeste Gill MD LAB BLOOD ORDERABLES Final Resu lt [facility] [address] [place] [address], documented in this encounter Visit Diagnoses Diagnosis Encounter for other general examination documented in this encounter Additional Health Concerns Infection Onset Date Last Indicated Resolved Time COVID-19 02/06/2025 02/06/2025 03/08/2025 7:04 PM EDT documented as of this encounter Care Teams Internal Carver Relationship Specialty Start Date End Date Leonid Ramsey MD [address] [place] [address] [place] [address] PCP - General 04/01/24 documented as of this encounter
== END 2025-04-02 12:19 | disposition home or self-care (01) ==
LOC: HO.HSM 12:03
PROVIDERS: PCP Internal Medicine Endocrinology, Diabetes & Metabolism; Visit Provider Registered Nurse
DX: G20.A1 Parkinson's disease without dyskinesia, without mention of fluctuations (principal)
CPT/HCPCS: 99214

== ENCOUNTER → 2025-04-02 12:02 | Outpatient (BNVA) | payer MEDICARE, OTHER, SELFPAY | PROVIDERS: PCP Internal Medicine Endocrinology, Diabetes & Metabolism; Visit Provider Registered Nurse | DX: G20.A1 Parkinson's disease without dyskinesia, without mention of fluctuations (principal) | CPT/HCPCS: 99212 ==